=== PATIENT | male | born 1945 | race Native Hawaiian/Other Pacific Islander ===

== ENCOUNTER 2017-05-23 00:36 | Emergency (ER) | payer MEDICARE ==
[2017-05-23 00:43] VITALS: PULSE 60; RESP 20; TEMP 98.2
--- NOTE | 2017-05-23 01:22 | C.PDOC ---
History Of Present Illness Patient presents to the ED with complaints of nausea and vomiting since today after eating chicken. Patient denies any abdominal pain or other physical complaints at this time. Time Seen by Provider: 05/23/17 01:21 Chief Complaint (Nursing): Abdominal Pain History Per: Patient History/Exam Limitations: no limitations Onset/Duration Of Symptoms: Hrs Current Symptoms Are (Timing): Still Present Context: Food Severity: Mild Pain Scale Rating Of: 3 Radiation Of Pain To:: None Associated Symptoms: Nausea, Vomiting. denies: Fever, Chills Recent travel outside of the [place]: No Past Medical History Reviewed: Historical Data, Nursing Documentation, Vital Signs Vital Signs: Last Vital Signs Temp 98.2 F 05/23/17 00:37 Pulse 60 05/23/17 00:37 Resp 20 05/23/17 00:37 BP 190/79 H 05/23/17 00:37 Pulse Ox 100 05/23/17 01:57 - Medical History PMH: Cardia Arrhythmia, HTN, Hypercholesterolemia, Chronic Kidney Disease Surgical History: Coronary Stent (x7), Pacemaker (2001 at [facility] by Dr Lockhart.) Family History: States: Unknown Family Hx - Social History Hx Alcohol Use: No Hx Substance Use: No - Immunization History Hx Influenza Vaccination: Yes Hx Pneumococcal Vaccination: Yes Review Of Systems Constitutional: Negative for: Fever, Chills Cardiovascular: Negative for: Chest Pain, Palpitations Respiratory: Negative for: Cough, Shortness of Breath Gastrointestinal: Positive for: Nausea, Vomiting. Negative for: Abdominal Pain , Diarrhea Physical Exam - Physical Exam Appears: Non-toxic, No Acute Distress Skin: Warm, Dry Head: Normacephalic Eye(s): bilateral: Normal Inspection Oral Mucosa: Moist Neck: Supple Chest: Symmetrical, No Deformity, Other (Pacemaker to the left chest ) Cardiovascular: Rhythm Regular Respiratory: No Rales, No Rhonchi, No Wheezing Gastrointestinal/Abdominal: Soft, No Tenderness, Distention, No Guarding, No Rebound, Other (tympanic to percussion ) Back: No CVA Tenderness Extremity: No Tenderness, No Calf Tenderness, Capillary Refill (good capillary refill, less than two seconds ), No Deformity, No Swelling Extremity: Bilateral: Atraumatic, Normal Color And Temperature, Normal ROM Neurological/Psych: Oriented x3, Normal Speech, Normal Cognition, Other ( patient speaking in complete sentences ) Gait: Steady ED Course And Treatment - Laboratory Results Result Diagrams: 05/23/17 01:32 05/23/17 01:33 ECG: Interpreted By Me, Viewed By Me ECG Rhythm: Sinus Rhythm (60), Nonspecific Changes (av dualpaced rhytm) O2 Sat by Pulse Oximetry: 100 (room air ) Pulse Ox Interpretation: Normal Progress Note: blood work, zofran. pt feels bettrer. wants to go home Reevaluation Time: 02:49 Reassessment Condition: Improved Medical Decision Making Medical Decision Making: Upon provider reevaluation patient is feeling better, is medically stable, and requires no further treatment in the ED at this time. Patient will be discharged home with Rx for zofran . Counseling was provided and all questions were answered regarding diagnosis and need for follow up with dr judge. There is agreement to discharge plan. Return if symptoms persist or worsen. Disposition Counseled Patient/Family Regarding: Studies Performed, Diagnosis, Need For Followup, Rx Given - Disposition Referrals: Mode Judge MD [Staff Provider] - Disposition: HOME/ ROUTINE Disposition Time: 01:21 Condition: FAIR Prescriptions: Ondansetron ODT [Zofran ODT] 1 odt PO TID #15 odt Instructions: Abdominal Pain (ED), Gas and Bloating (ED), Heart Failure (DC) - Clinical Impression Clinical Impression: Abdominal pain, Nausea, CHF (congestive heart failure) - Scribe Statement The provider has reviewed the documentation as recorded by the Scribe Nurys Milligan All medical record entries made by the Scribe were at my direction and personally dictated by me. I have reviewed the chart and agree that the record accurately reflects my personal performance of the history, physical exam, medical decision making, and the department course for this patient. I have also personally directed, reviewed, and agree with the discharge instructions and disposition.
[2017-05-23 01:39] LABS: EOS # 0.3 K/uL (0.0-0.7); EOS % 6.7 % (0.0-4.0); HEMOGLOBIN 13.1 g/dL (12.0-18.0); LYMPH # 0.4 K/uL (1.0-4.3); LYMPH % 10.2 % (20.0-40.0); MEAN CELL VOLUME 93.8 fL (80.0-94.0); MEAN CORPUSCULAR HEMOGLOBIN 30.8 pg (27.0-31.0); MEAN CORPUSCULAR HGB CONC 32.8 g/dL (33.0-37.0); MEAN PLATELET VOLUME 8.3 fL (7.2-11.7); MONO # 0.3 K/uL (0.0-0.8); MONO % 7.7 % (0.0-10.0); NEUT # 3.1 K/uL (1.8-7.0); NEUT % 74.4 % (50.0-75.0); RBC 4.25 Mil/uL (4.40-5.90); RED CELL DISTRIBUTION WIDTH 15.1 % (11.5-14.5); WHITE BLOOD COUNT 4.1 K/uL (4.8-10.8)
[2017-05-23 01:45] LABS: INR 1.2; PROTHROMBIN TIME 13.9 SECONDS (9.7-12.2)
[2017-05-23 01:47] LABS: ALBUMIN 4.2 g/dL (3.5-5.0)
[2017-05-23 01:50] LABS: ALB/GLOB RATIO 1.1 (1.0-2.1)
[2017-05-23 01:51] LABS: CALCIUM 8.8 mg/dl (8.6-10.4)
[2017-05-23 02:55] VITALS: BP 154/65; O2SAT 98
--- NOTE | 2017-05-24 21:35 | CARD ---
APPROVED REPORT EKG Measurement Heart [id number] CT [id number] <Conclusion> AV dual-paced rhythm Abnormal ECG
== END 2017-05-23 03:12 | disposition home or self-care (01) ==
LOC: C.ER 00:36
DX: R11.0 Nausea (principal); R10.9 Unspecified abdominal pain; I50.9 Heart failure, unspecified
CPT/HCPCS: 80053; 83690; 83880; 85025; 85610; 85730; 93005; 96374; 96375; 99284; J1940; J2405

== ENCOUNTER 2018-10-14 15:18 | Inpatient (IN) | payer MEDICARE ==
--- NOTE | 2018-10-14 17:13 | C.PDOC ---
History Of Present Illness 73 y/o male, with history of diabetes, presents to ED complaining of abdominal pain since last night. Patient states he had normal bowel movement this morning and denies vomiting. States this is the first time having abdominal pain, but was here before for dizziness and vomiting. <Armida Buck - Last Filed: 10/14/18 18:59> History Per: Patient History/Exam Limitations: no limitations Onset/Duration Of Symptoms: Days Current Symptoms Are (Timing): Still Present <Armida Buck - Last Filed: 10/14/18 18:59> <Pooja Molina - Last Filed: 10/14/18 20:51> Time Seen by Provider: 10/14/18 16:46 Chief Complaint (Nursing): Abdominal Pain Past Medical History Reviewed: Historical Data, Nursing Documentation, Vital Signs Vital Signs: Last Vital Signs Temp 98.2 F 10/14/18 15:25 Pulse 65 10/14/18 15:25 Resp 18 10/14/18 15:25 BP 174/79 H 10/14/18 15:25 Pulse Ox 98 10/14/18 15:25 - Medical History PMH: Cardia Arrhythmia, HTN, Hypercholesterolemia, Chronic Kidney Disease Surgical History: Coronary Stent (x7), Pacemaker (2000 at [facility] by Dr Lockhart.) Family History: States: No Known Family Hx - Social History Hx Alcohol Use: No Hx Substance Use: No - Immunization History Hx Influenza Vaccination: Yes Hx Pneumococcal Vaccination: Yes <Armida Buck - Last Filed: 10/14/18 18:59> Vital Signs: Last Vital Signs Temp 98.2 F 10/14/18 15:25 Pulse 65 10/14/18 18:40 Resp 18 10/14/18 18:40 BP 187/78 H 10/14/18 18:40 Pulse Ox 98 10/14/18 18:59 <Tawanna Molinazackary - Last Filed: 10/14/18 20:51> Review Of Systems Except As Marked, All Systems Reviewed And Found Negative. Constitutional: Negative for: Fever, Chills Cardiovascular: Negative for: Chest Pain Respiratory: Negative for: Shortness of Breath Gastrointestinal: Positive for: Abdominal Pain. Negative for: Vomiting, Diarrhea <Armida Buck - Last Filed: 10/14/18 18:59> Physical Exam - Physical Exam Appears: Non-toxic, No Acute Distress Skin: Warm, Dry Head: Atraumatic, Normacephalic Eye(s): bilateral: Normal Inspection Oral Mucosa: Moist Neck: Supple Chest: Symmetrical Cardiovascular: Rhythm Regular, No Murmur Respiratory: Normal Breath Sounds, No Rales, No Rhonchi, No Wheezing Gastrointestinal/Abdominal: Soft, No Tenderness, No Distention, No Guarding, No Rebound Extremity: No Pedal Edema Extremity: Bilateral: Atraumatic Neurological/Psych: Oriented x3, Normal Speech <Armida Buck Filed: 10/14/18 18:59> ED Course And Treatment - Laboratory Results Result Diagrams: 10/14/18 17:33 10/14/18 17:33 O2 Sat by Pulse Oximetry: 98 (RA) Pulse Ox Interpretation: Normal <Armida Buck Filed: 10/14/18 18:59> - Laboratory Results Result Diagrams: 10/14/18 17:33 10/14/18 17:33 ECG: Interpreted By Me, Viewed By Me ECG Rhythm: Sinus Rhythm (65), Nonspecific Changes (av dual-paced) Pulse Ox Interpretation: Normal Progress Note: 8:[address] and us shows acute cholecystitis with stone in bladder neck. Spoke with dr ruiz who agrees with admission. Spoke with the pt and is aware of the diagnosis <Pooja Molina Filed: 10/14/18 20:51> Medical Decision Making Medical Decision Making: Plan: --CT Abd/Pel --EKG --Bloodwork --Morphine --US Abdomen --Urinalysis <Armida Buck Filed: 10/14/18 18:59> Disposition - Disposition Disposition Time: 19:00 <Armida Buck Filed: 10/14/18 18:59> Discussed With : Mode Ruiz Comment: accepted the pt on his service and took over the care at 8:49 PM Doctor Will See Patient In The: Hospital Counseled Patient/Family Regarding: Studies Performed, Diagnosis - POA Present On Arrival: Poor Glycemic Control <JesseTawannazackary Last Filed: 10/14/18 20:51> - Disposition Disposition: HOSPITALIZED Condition: FAIR Forms: [facility] (U[place]ayan) - Clinical Impression Clinical Impression: Abdominal pain, Acute cholecystitis - Scribe Statement The provider has reviewed the documentation as recorded by the Samuel Ward Provider Attestation: All medical record entries made by the Scribe were at my direction and personally dictated by me. I have reviewed the chart and agree that the record accurately reflects my personal performance of the history, physical exam, medical decision making, and the department course for this patient. I have also personally directed, reviewed, and agree with the discharge instructions and disposition. <Armida Buck - Last Filed: 10/14/18 18:59> Physician Patient Turnover Patient Signed Over To: Pooja Molina Handoff Comments: fu US, ct, dispo <Armida Buck - Last Filed: 10/14/18 18:59> Decision To Admit <HeberArmida - Last Filed: 10/14/18 18:59> - Pt Status Changed To: Hospital Disposition Of: Inpatient - Admit Certification Admit to Inpatient:: After my assessment, the patient will require hospitalization for at least two midnights. This is because of the severity of symptoms shown, intensity of services needed, and/or the medical risk in this patient being treated as an outpatient. - InPatient: Physician Admission Certification:: After my assessment, the patient will require hospitalization for at least two midnights. This is because of the severity of symptoms shown, intensity of services needed, and/or the medical risk in this patient being treated as an outpatient. - . Bed Request Type: Regular Admitting Physician: Mode Ruiz <Pooja Molina - Last Filed: 10/14/18 20:51> - . Patient Diagnosis: Abdominal pain, Acute cholecystitis
[2018-10-14 17:44] LABS: BASO % 0.7 % (0.0-2.0); EOS % 0.1 % (0.0-4.0); LYMPH # 0.8 K/uL (1.0-4.3); LYMPH % 11.9 % (20.0-40.0); MEAN CELL VOLUME 93.1 fL (80.0-94.0); MEAN CORPUSCULAR HGB CONC 33.3 g/dL (33.0-37.0); MEAN PLATELET VOLUME 8.1 fL (7.2-11.7); MONO # 0.5 K/uL (0.0-0.8); NEUT # 5.4 K/uL (1.8-7.0); NEUT % 79.3 % (50.0-75.0); RBC 4.5 Mil/uL (4.40-5.90); RED CELL DISTRIBUTION WIDTH 15.1 % (11.5-14.5); WHITE BLOOD COUNT 6.8 K/uL (4.8-10.8)
[2018-10-14 17:52] LABS: URINE BILIRUBIN NEGATIVE (NEGATIVE); URINE BLOOD 1+ (NEGATIVE); URINE CLARITY Clear (Clear); URINE COLOR Yellow (YELLOW); URINE GLUCOSE (UA) 1+ mg/dL (Normal); URINE LEUKOCYTE ESTERASE NEG Leu/uL (Negative); URINE PROTEIN NEGATIVE (NEGATIVE); URINE UROBILINOGEN NORMAL mg/dL (0.2-1.0)
[2018-10-14 17:53] LABS: ALB/GLOB RATIO 1.4 (1.0-2.1); ALBUMIN 4.9 g/dL (3.5-5.0); CALCIUM 9.8 mg/dl (8.6-10.4)
[2018-10-14] MEDS ORDERED: Iohexol 240 (50 ml) PO STA (18:03)
[2018-10-14] MEDS ORDERED: Iohexol 240 (50 ml) ONE (18:17)
[2018-10-14] MEDS ORDERED: Sodium Chloride 0.9% 500 ML IV ONE (20:24)
[2018-10-14] MEDS ORDERED: Piperacillin/Tazobact 3.375 gm 100 ML IVPB STA (20:34)
[2018-10-14] MEDS ORDERED: Piperacillin/Tazobact 3.375 gm 100 ML IVPB ONE (20:43)
[2018-10-14] MEDS ORDERED: HYDROmorphone 1 mg/ml ISec IVP PRN (22:18)
[2018-10-14] MEDS: Dextrose 5%/0.45% NS 1,000 ML IV SCH (23:00)
[2018-10-15] MEDS: Piperacill/Tazo 2.25gm in Dex 2.25 GM/50 ML BAG IVPB SCH ×4 (01:54→20:00)
[2018-10-15 06:07] LABS: BASO % 0.6 % (0.0-2.0); EOS % 0.5 % (0.0-4.0); HEMOGLOBIN 13.4 g/dL (12.0-18.0); LYMPH # 0.5 K/uL (1.0-4.3); LYMPH % 7.4 % (20.0-40.0); MEAN CELL VOLUME 91.9 fL (80.0-94.0); MEAN CORPUSCULAR HEMOGLOBIN 31.1 pg (27.0-31.0); MEAN CORPUSCULAR HGB CONC 33.9 g/dL (33.0-37.0); MEAN PLATELET VOLUME 7.9 fL (7.2-11.7); MONO # 0.9 K/uL (0.0-0.8); MONO % 12.2 % (0.0-10.0); NEUT # 5.6 K/uL (1.8-7.0); NEUT % 79.3 % (50.0-75.0); PLATELET COUNT 124 K/uL (130-400); RBC 4.31 Mil/uL (4.40-5.90); RED CELL DISTRIBUTION WIDTH 14.9 % (11.5-14.5)
[2018-10-15 06:17] LABS: INR 1.4; PROTHROMBIN TIME 15.5 SECONDS (9.7-12.2)
[2018-10-15 06:36] LABS: ALB/GLOB RATIO 1.3 (1.0-2.1); ALBUMIN 4.2 g/dL (3.5-5.0); CALCIUM 8.6 mg/dl (8.6-10.4)
--- NOTE | 2018-10-15 07:29 | CP.PCM.CON ---
History of Present Illness - History of Present Illness History of Present Illness: General surgery Consult for Dr. Laurent This is a 73M with a PMH of A flutter, AL, CAD s/p stenX7 defib placement and pacer, also with a PMH of gallstone pancreatitis. Presents due to 2 days of right upper quadrant pain. He reports nothing makes it better and nothing makes it worse. He reports nausea associated with the pain. He reports that he had a "gallstone by the pancrease" in the past and since it was by the pancreas they said he did not have to have his GB removed. He deneis any current chest pain fevers chills or SOB. US in the ed shows a gallstone stuck in the neck of the GB PMH: CAD s/p 7 stents, Aflutter PSH: Stents, Defib, Pacer All: NKDA Social: denies vices Review of Systems - Review of Systems Review of Systems: 12 point review of symptoms conducted and negative Past Patient History - Tetanus Immunizations Tetanus Immunization: Unknown - Past Medical History & Family History Past Medical History?: Yes - Past Social History Smoking Status: Former Smoker - CARDIAC Hx Cardia Arrhythmia: Yes Hx Hypercholesterolemia: Yes Hx Hypertension: Yes Hx Pacemaker: Yes (2000 at [facility] by Dr Lockhart.) - PULMONARY Hx Respiratory Disorders: No - NEUROLOGICAL Hx Neurological Disorder: No - HEENT Hx HEENT Problems: No - RENAL Hx Chronic Kidney Disease: Yes - ENDOCRINE/METABOLIC Hx Diabetes Mellitus Type 2: Yes - HEMATOLOGICAL/ONCOLOGICAL Hx Blood Disorders: No - INTEGUMENTARY Hx Dermatological Problems: No - MUSCULOSKELETAL/RHEUMATOLOGICAL Hx Musculoskeletal Disorders: No Hx Falls: No - GASTROINTESTINAL Hx Gastrointestinal Disorders: No - GENITOURINARY/GYNECOLOGICAL Hx Genitourinary Disorders: No - PSYCHIATRIC Hx Substance Use: No - SURGICAL HISTORY Hx Coronary Stent: Yes (x7) - ANESTHESIA Hx Anesthesia: Yes Hx Anesthesia Reactions: No Meds Allergies/Adverse Reactions: Allergies Allergy/AdvReac Type Severity Reaction Status Date / Time No Known Allergies Allergy Verified 10/14/18 15:28 - Medications Medications: Current Medications Allopurinol (Zyloprim) 100 mg PO DAILY [facility] Clonidine HCl (Catapres) 0.1 mg PO TID [facility] Hydromorphone HCl (Dilaudid) 1 mg IVP Q6H PRN PRN Reason: Pain, severe (8-10) Piperacillin Sod/Tazobactam Sod (Zosyn 2.25 Gm Iv Premix) 2.25 gm in 50 mls @ 100 mls/hr IVPB Q6H [facility]; Protocol Last Admin: 10/15/18 01:54 Dose: 100 mls/hr Dextrose/Sodium Chloride (Dextrose 5%/0.45% Ns 1000 Ml) 1,000 mls @ 40 mls/hr IV .Q24H [facility] Last Admin: 10/14/18 23:00 Dose: 40 mls/hr Insulin Aspart (Novolog) 0 unit SC ACHS [facility]; Protocol Isosorbide Mononitrate (Imdur) 60 mg PO DAILY [facility] Losartan Potassium (Cozaar) 100 mg PO DAILY [facility] Metoprolol Succinate (Toprol Xl) 25 mg PO DAILY [facility] Ondansetron HCl (Zofran Inj) 4 mg IVP Q6 PRN PRN Reason: Nausea/Vomiting Physical Exam - Constitutional Appears: Non-toxic, No Acute Distress - Head Exam Head Exam: ATRAUMATIC, NORMOCEPHALIC - Eye Exam Eye Exam: EOMI - ENT Exam ENT Exam: Mucous Membranes Moist - Respiratory Exam Respiratory Exam: NORMAL BREATHING PATTERN - Cardiovascular Exam Cardiovascular Exam: +S1, +S2 - GI/Abdominal Exam GI & Abdominal Exam: Soft, Tenderness. absent: Distended, Firm, Guarding, Rigid - Neurological Exam Neurological exam: Alert, Oriented x3 - Psychiatric Exam Psychiatric exam: Normal Affect, Normal Mood - Skin Skin Exam: Dry, Intact Results - Vital Signs Recent Vital Signs: Last Vital Signs Temp 99.6 F 10/15/18 06:31 Pulse 60 10/15/18 06:31 Resp 16 10/15/18 06:31 BP 178/80 H 10/15/18 06:31 Pulse Ox 96 10/15/18 06:31 - Labs Result Diagrams: 10/15/18 06:04 10/15/18 06:04 Labs: Laboratory Results - last 24 hr 10/14/18 10/14/18 10/14/18 17:33 17:33 17:33 WBC 6.8 D RBC 4.50 Hgb 14.0 Hct 41.9 MCV 93.1 MCH 31.0 MCHC 33.3 RDW 15.1 H Plt Count 139 MPV 8.1 Neut % (Auto) 79.3 H Lymph % (Auto) 11.9 L [place] % (Auto) 8.0 Eos % (Auto) 0.1 Baso % (Auto) 0.7 Neut # (Auto) 5.4 Lymph # (Auto) 0.8 L [place] # (Auto) 0.5 Eos # (Auto) 0.0 Baso # (Auto) 0.0 PT INR APTT Sodium 138 Potassium 3.9 Chloride 94 L Carbon Dioxide 28 Anion Gap 20 BUN 32 H Creatinine 1.7 H Est GFR ( Amer) 48 Est GFR (Non-Af Amer) 39 Random Glucose 191 H Calcium 9.8 Total Bilirubin 1.1 AST 41 ALT 82 H D Alkaline Phosphatase 93 Total Protein 8.4 H Albumin 4.9 Globulin 3.5 Albumin/Globulin Ratio 1.4 Lipase 149 Urine Color Yellow Urine Clarity Clear Urine pH 5.0 Ur Specific [place] 1.013 Urine Protein Negative Urine Glucose (UA) 1+ H Urine Ketones Negative Urine Blood 1+ H Urine Nitrate Negative Urine Bilirubin Negative Urine Urobilinogen Normal Ur Leukocyte Esterase Neg Urine WBC (Auto) < 1 Urine RBC (Auto) < 1 10/15/18 10/15/18 10/15/18 06:04 06:04 06:04 WBC 7.0 RBC 4.31 L Hgb 13.4 Hct 39.6 MCV 91.9 MCH 31.1 H MCHC 33.9 RDW 14.9 H Plt Count 124 L MPV 7.9 Neut % (Auto) 79.3 H Lymph % (Auto) 7.4 L [place] % (Auto) 12.2 H Eos % (Auto) 0.5 Baso % (Auto) 0.6 Neut # (Auto) 5.6 Lymph # (Auto) 0.5 L [place] # (Auto) 0.9 H Eos # (Auto) 0.0 Baso # (Auto) 0.0 PT 15.5 H INR 1.4 APTT 35 H Sodium 135 Potassium 4.0 Chloride 100 Carbon Dioxide 24 Anion Gap 15 BUN 25 H Creatinine 1.4 Est GFR ( Amer) 60 Est GFR (Non-Af Amer) 49 Random Glucose 188 H Calcium 8.6 Total Bilirubin 2.0 H AST 41 ALT 55 Alkaline Phosphatase 75 Total Protein 7.3 Albumin 4.2 Globulin 3.1 Albumin/Globulin Ratio 1.3 Lipase Urine Color Urine Clarity Urine pH Ur Specific [place] Urine Protein Urine Glucose (UA) Urine Ketones Urine Blood Urine Nitrate Urine Bilirubin Urine Urobilinogen Ur Leukocyte Esterase Urine WBC (Auto) Urine RBC (Auto) Assessment & Plan - Assessment and Plan (Free Text) Assessment: 73M with symptomatic cholelithiais NPO F/U GI recs F/U cardiac and medical clearance Possible lap omar once medically cleared D/W DR. Mehran Moody PGY3
[2018-10-15] MEDS ORDERED: (Novolog) Insulin Aspart, Recombinant 100 u/ml 10 ml vial ONE (08:31)
[2018-10-15 08:33] LABS: BASOPHIL 1 % (0-2); EOSINOPHIL 1 % (0-4); LYMPHOCYTE 8 % (20-40); MONOCYTE 13 % (0-10); NEUTROPHIL 77 % (50-75); TOTAL CELLS COUNTED 100
[2018-10-15 08:34] LABS: PLATELET ESTIMATE SLIGHTLY DECREASED (NORMAL)
[2018-10-15] MEDS: (Novolog) Insulin Aspart, Recombinant 100 u/ml 10 ml vial SC SCH ×4 (08:40→22:01)
[2018-10-15] MEDS: Metoprolol Succinate 25 mg XL Tab PO SCH (08:41)
--- NOTE | 2018-10-15 09:51 | CP.PCM.CON ---
History of Present Illness - History of Present Illness History of Present Illness: This is a 73 year old man with abdominal pain. Patient reports having an episode of abdominal pain six years ago which was accompanied by jaundice and pancreatitis. He was told at the time that the symptoms were caused by passage of a stone. Patient presented to the ER yesterday with a one-day history of RUQ pain accompanied by nausea. He did not note any provocative or palliative factors. At present, he states that the pain has resolved. On evaluation in the ER, he was afebrile, and the abdominal examination was benign, without tenderness, according to the ER physcician's note. WBC count was normal. LFTs were as follows: AST 41, ALT 82, ALKP 93, TBILI 1.1. Since admission, he has not experienced any further nausea. He denies having vomiting, loss of appetite, loss of weight, difficulty swallowing, heartburn, diarrhea, constipation, and rectal bleeding. Review of Systems - Review of Systems All systems: reviewed and no additional remarkable complaints except - Constitutional Constitutional: absent: Chills, Fever - Cardiovascular Cardiovascular: absent: Chest Pain, Dyspnea - Respiratory Respiratory: absent: Dyspnea - Gastrointestinal Gastrointestinal: Abdominal Pain, Nausea. absent: Constipation, Diarrhea, Dysphagia, Heartburn, Hematochezia, Vomiting Past Patient History - Tetanus Immunizations Tetanus Immunization: Unknown - Past Medical History & Family History Past Medical History?: Yes - Past Social History Smoking Status: Former Smoker - CARDIAC Hx Cardia Arrhythmia: Yes Hx Hypercholesterolemia: Yes Hx Hypertension: Yes Hx Pacemaker: Yes (2000 at [facility] by Dr Lockhart.) - PULMONARY Hx Respiratory Disorders: No - NEUROLOGICAL Hx Neurological Disorder: No - HEENT Hx HEENT Problems: No - RENAL Hx Chronic Kidney Disease: Yes - ENDOCRINE/METABOLIC Hx Diabetes Mellitus Type 2: Yes - HEMATOLOGICAL/ONCOLOGICAL Hx Blood Disorders: No - INTEGUMENTARY Hx Dermatological Problems: No - MUSCULOSKELETAL/RHEUMATOLOGICAL Hx Musculoskeletal Disorders: No Hx Falls: No - GASTROINTESTINAL Hx Gastrointestinal Disorders: No - GENITOURINARY/GYNECOLOGICAL Hx Genitourinary Disorders: No - PSYCHIATRIC Hx Substance Use: No - SURGICAL HISTORY Hx Coronary Stent: Yes (x7) - ANESTHESIA Hx Anesthesia: Yes Hx Anesthesia Reactions: No Meds Allergies/Adverse Reactions: Allergies Allergy/AdvReac Type Severity Reaction Status Date / Time No Known Allergies Allergy Verified 10/14/18 15:28 - Medications Medications: Current Medications Allopurinol (Zyloprim) 100 mg PO DAILY [facility] Last Admin: 10/15/18 08:41 Dose: 100 mg Clonidine HCl (Catapres) 0.1 mg PO TID [facility] Last Admin: 10/15/18 08:40 Dose: 0.1 mg Hydromorphone HCl (Dilaudid) 1 mg IVP Q6H PRN PRN Reason: Pain, severe (8-10) Piperacillin Sod/Tazobactam Sod (Zosyn 2.25 Gm Iv Premix) 2.25 gm in 50 mls @ 100 mls/hr IVPB Q6H [facility]; Protocol Last Admin: 10/15/18 09:05 Dose: 100 mls/hr Dextrose/Sodium Chloride (Dextrose 5%/0.45% Ns 1000 Ml) 1,000 mls @ 40 mls/hr IV .Q24H [facility] Last Admin: 10/14/18 23:00 Dose: 40 mls/hr Insulin Aspart (Novolog) 0 unit SC ACHS [facility]; Protocol Last Admin: 10/15/18 08:40 Dose: 1 unit Isosorbide Mononitrate (Imdur) 60 mg PO DAILY [facility] Last Admin: 10/15/18 08:40 Dose: 60 mg Losartan Potassium (Cozaar) 100 mg PO DAILY [facility] Last Admin: 10/15/18 08:40 Dose: 100 mg Metoprolol Succinate (Toprol Xl) 25 mg PO DAILY [facility] Last Admin: 10/15/18 08:41 Dose: 25 mg Ondansetron HCl (Zofran Inj) 4 mg IVP Q6 PRN PRN Reason: Nausea/Vomiting Physical Exam - Constitutional Appears: No Acute Distress - Head Exam Head Exam: ATRAUMATIC, NORMOCEPHALIC - Eye Exam Eye Exam: EOMI, PERRL - Neck Exam Neck exam: Negative for: Lymphadenopathy, Thyromegaly - Respiratory Exam Respiratory Exam: NORMAL BREATHING PATTERN. absent: Rales, Rhonchi, Wheezes - Cardiovascular Exam Cardiovascular Exam: REGULAR RHYTHM, +S1, +S2. absent: Gallop, Rubs, Systolic Murmur - GI/Abdominal Exam GI & Abdominal Exam: Normal Bowel Sounds, Soft. absent: Mass, Organomegaly, Tenderness - Rectal Exam Rectal Exam: Deferred - Extremities Exam Extremities exam: Negative for: calf tenderness, pedal edema Results - Vital Signs Recent Vital Signs: Last Vital Signs Temp 99.6 F 10/15/18 06:31 Pulse 60 10/15/18 06:31 Resp 16 10/15/18 06:31 BP 178/80 H 10/15/18 06:31 Pulse Ox 96 10/15/18 06:31 - Labs Result Diagrams: 10/15/18 06:04 10/15/18 06:04 Labs: Laboratory Results - last 24 hr 10/14/18 10/14/18 10/14/18 17:33 17:33 17:33 WBC 6.8 D RBC 4.50 Hgb 14.0 Hct 41.9 MCV 93.1 MCH 31.0 MCHC 33.3 RDW 15.1 H Plt Count 139 MPV 8.1 Neut % (Auto) 79.3 H Lymph % (Auto) 11.9 L [place] % (Auto) 8.0 Eos % (Auto) 0.1 Baso % (Auto) 0.7 Neut # (Auto) 5.4 Lymph # (Auto) 0.8 L [place] # (Auto) 0.5 Eos # (Auto) 0.0 Baso # (Auto) 0.0 Neutrophils % (Manual) Lymphocytes % (Manual) Monocytes % (Manual) Eosinophils % (Manual) Basophils % (Manual) Platelet Estimate PT INR APTT Sodium 138 Potassium 3.9 Chloride 94 L Carbon Dioxide 28 Anion Gap 20 BUN 32 H Creatinine 1.7 H Est GFR ( Amer) 48 Est GFR (Non-Af Amer) 39 POC Glucose (mg/dL) Random Glucose 191 H Calcium 9.8 Total Bilirubin 1.1 AST 41 ALT 82 H D Alkaline Phosphatase 93 Total Protein 8.4 H Albumin 4.9 Globulin 3.5 Albumin/Globulin Ratio 1.4 Lipase 149 Urine Color Yellow Urine Clarity Clear Urine pH 5.0 Ur Specific [place] 1.013 Urine Protein Negative Urine Glucose (UA) 1+ H Urine Ketones Negative Urine Blood 1+ H Urine Nitrate Negative Urine Bilirubin Negative Urine Urobilinogen Normal Ur Leukocyte Esterase Neg Urine WBC (Auto) < 1 Urine RBC (Auto) < 1 10/14/18 10/15/18 10/15/18 22:59 06:04 06:04 WBC 7.0 RBC 4.31 L Hgb 13.4 Hct 39.6 MCV 91.9 MCH 31.1 H MCHC 33.9 RDW 14.9 H Plt Count 124 L MPV 7.9 Neut % (Auto) 79.3 H Lymph % (Auto) 7.4 L [place] % (Auto) 12.2 H Eos % (Auto) 0.5 Baso % (Auto) 0.6 Neut # (Auto) 5.6 Lymph # (Auto) 0.5 L [place] # (Auto) 0.9 H Eos # (Auto) 0.0 Baso # (Auto) 0.0 Neutrophils % (Manual) 77 H Lymphocytes % (Manual) 8 L Monocytes % (Manual) 13 H Eosinophils % (Manual) 1 Basophils % (Manual) 1 Platelet Estimate Slightly decreased L PT 15.5 H INR 1.4 APTT 35 H Sodium Potassium Chloride Carbon Dioxide Anion Gap BUN Creatinine Est GFR ( Amer) Est GFR (Non-Af Amer) POC Glucose (mg/dL) 120 H Random Glucose Calcium Total Bilirubin AST ALT Alkaline Phosphatase Total Protein Albumin Globulin Albumin/Globulin Ratio Lipase Urine Color Urine Clarity Urine pH Ur Specific [place] Urine Protein Urine Glucose (UA) Urine Ketones Urine Blood Urine Nitrate Urine Bilirubin Urine Urobilinogen Ur Leukocyte Esterase Urine WBC (Auto) Urine RBC (Auto) 10/15/18 06:04 WBC RBC Hgb Hct MCV MCH MCHC RDW Plt Count MPV Neut % (Auto) Lymph % (Auto) [place] % (Auto) Eos % (Auto) Baso % (Auto) Neut # (Auto) Lymph # (Auto) [place] # (Auto) Eos # (Auto) Baso # (Auto) Neutrophils % (Manual) Lymphocytes % (Manual) Monocytes % (Manual) Eosinophils % (Manual) Basophils % (Manual) Platelet Estimate PT INR APTT Sodium 135 Potassium 4.0 Chloride 100 Carbon Dioxide 24 Anion Gap 15 BUN 25 H Creatinine 1.4 Est GFR ( Amer) 60 Est GFR (Non-Af Amer) 49 POC Glucose (mg/dL) Random Glucose 188 H Calcium 8.6 Total Bilirubin 2.0 H AST 41 ALT 55 Alkaline Phosphatase 75 Total Protein 7.3 Albumin 4.2 Globulin 3.1 Albumin/Globulin Ratio 1.3 Lipase Urine Color Urine Clarity Urine pH Ur Specific [place] Urine Protein Urine Glucose (UA) Urine Ketones Urine Blood Urine Nitrate Urine Bilirubin Urine Urobilinogen Ur Leukocyte Esterase Urine WBC (Auto) Urine RBC (Auto) Assessment & Plan (1) Acute cholecystitis Assessment and Plan: Patient had an episode of biliary colic, and imaging studies show a distended GB with a stone impacted in the neck. Hepatobiliary scan has been ordered for this morning. Patient will need cholecystectomy or cholecystostomy if he cannot be cleared for surgery. Status: Acute
--- NOTE | 2018-10-15 10:11 | US ---
Date of service: 10/14/2018 HISTORY: abd pain COMPARISON: None. TECHNIQUE: Sonographic evaluation of the right upper quadrant of the abdomen. FINDINGS: LIVER: Measures 13.9 cm in length. Normal echogenicity of the liver parenchyma. No mass. No intrahepatic bile duct dilatation. GALLBLADDER: Cholelithiasis. Calculus in the region of the gallbladder neck/cystic duct without definite evidence of obstruction. No mural thickening. No pericholecystic fluid. Negative sonographic Maurer sign. COMMON BILE DUCT: Measures 6 mm. No stones. No dilatation. PANCREAS: Unremarkable as visualized. No mass. No ductal dilatation. RIGHT KIDNEY: Measures 9.6 cm in length. Normal echogenicity. No calculus, mass, or hydronephrosis. AORTA: No aneurysmal dilatation. IVC: Unremarkable. OTHER FINDINGS: None . IMPRESSION: Cholelithiasis. No sonographic evidence of cholecystitis. No additional abnormality.
--- NOTE | 2018-10-15 10:35 | CT ---
Date of service: 10/14/2018 PROCEDURE: CT Abdomen and Pelvis. HISTORY: Abdominal pain COMPARISON: Correlation made with concurrent abdominal ultrasound 10/14/2013.. Comparison also made with prior CT scan abdomen pelvis 03/02/2012. TECHNIQUE: Contiguous axial images of the abdomen and pelvis. Oral contrast was administered. No IV contrast given. Coronal and Sagittal reformats generated. Radiation dose: Total exam DLP = 800.04 mGy-cm. This CT exam was performed using one or more of the following dose reduction techniques: Automated exposure control, adjustment of the mA and/or kV according to patient size, and/or use of iterative reconstruction technique. FINDINGS: LOWER THORAX: Mild passive/dependent type atelectasis both posterior lower lung escalante. Lung bases are otherwise clear. Heart size is enlarged. No significant pericardial effusion. New. There is a small hiatal hernia with wall thickening of the distal esophagus likely due to protrusion of gastric mucosa. Possibility of esophagitis or other intrinsic/invasive wall lesion not excluded. Clinical correlation recommended. LIVER: Liver exhibits normal size and attenuation pattern without masses collections or calcifications seen on this noncontrast exam. No gross ductal dilatation. GALLBLADDER AND BILE DUCTS: Gallbladder physiologically markedly distended with mild wall thickening and/or wall edema. There is an approximately 9.6 mm elliptical shaped calculus in the gallbladder neck region. Some mild pericholecystic infiltration changes. Rule out early acute cholecystitis. PANCREAS: Pancreas is atrophic and fatty replaced. No obvious pancreatic masses collections or calcifications. SPLEEN: Spleen exhibits normal size and attenuation pattern without masses collections or calcifications. . ADRENALS: No adrenal lesions. KIDNEYS AND URETERS: Kidneys demonstrate relatively symmetric size. No stone or hydronephrosis. BLADDER: Urinary bladder is incompletely distended which may in part account for slight thick-walled appearance. Muscular hypertrophy may contribute. REPRODUCTIVE: Prostate gland measures approximately 4.5 cm in transverse dimension. Prostatic calcifications present.. APPENDIX: Normal-appearing appendix. BOWEL: Evaluation of the bowel is slightly limited due to incomplete opacification. The stomach is distended with liquid contrast material admixed with food debris and air. Visualized loops of small bowel exhibit normal contour and caliber. No evidence of acute mechanical small bowel obstruction... Stool and air seen throughout the large bowel.. There is mild rectal wall thickening nonspecific. Consider followup colonoscopy to exclude the possibility of an intrinsic/invasive wall lesion.. There are a few right-sided colonic diverticula. No radiographic evidence of acute diverticulitis. PERITONEUM: Unremarkable. No fluid collection. No free air. Tiny fat containing umbilical hernia. LYMPH NODES: Unremarkable. No enlarged lymph nodes. VASCULATURE: Unremarkable. No aortic aneurysm. Minor aortic atherosclerotic calcification or mural plaque present. BONES: Multilevel degenerative spondylosis of the lower thoracic and lumbar spine. OTHER FINDINGS: None.. IMPRESSION: Gallbladder physiologically markedly distended with mild wall thickening and/or wall edema. There is an approximately 9.6 mm elliptical shaped calculus in the gallbladder neck region. Some mild pericholecystic infiltration changes. Rule out early acute cholecystitis. A small hiatal hernia with wall thickening of the distal esophagus likely due to protrusion of gastric mucosa however esophagitis or other intrinsic/invasive wall lesion not excluded. Suggest followup endoscopy if indicated. There is also mild wall thickening of the rectum that could be secondary to incomplete distention as well as adherent unopacified stool though intrinsic/invasive wall lesion also not excluded. Followup colonoscopy suggested as well. The few right-sided colonic diverticula
--- NOTE | 2018-10-15 11:35 | CP.PCM.CON ---
History of Present Illness - History of Present Illness History of Present Illness: 73M Presents due to 2 days of right upper quadrant pain. He reports nothing makes it better and nothing makes it worse. He reports nausea associated with the pain. He reports that he had a "gallstone by the pancreatitis" in the past started on IV antibiotics HIDA pending PMH: CAD s/p 7 stents, Aflutter PSH: Stents, Defib, Pacer All: NKDA Social: denies vices Review of Systems - Review of Systems All systems: reviewed and no additional remarkable complaints except - Constitutional Constitutional: absent: As Per HPI, Anorexia, Chills, Daytime Sleepiness, Excessive Sweating, Fatigue, Fever, Frequent Falls, Headache, Increased Appetite, Lethargy, Malaise, Night Sweats, Snoring, Sleep Apnea, Weight Gain, Weight Loss, Weakness, Other - EENT Eyes: absent: As Per HPI, Blind Spots, Blurred Vision, Change in Vision, Decreased Night Vision, Diplopia, Discharge, Dry Eye, Exophthalmos, Floaters, Irritation, Itchy Eyes, Loss of Peripheral Vision, Pain, Photophobia, Requires Corrective Lenses, Sees Flashes, Spots in Vision, Tunnel Vision, Other Visual Disturbances, Loss of Vision, Other Ears: absent: As Per HPI, Decreased Hearing, Ear Discharge, Ear Pain, Tinnitus, Abnormal Hearing, Disequilibrium, Dizziness, Other Nose/Mouth/Throat: absent: As Per HPI, Epistaxis, Nasal Congestion, Nasal Discharge, Nasal Obstruction, Nasal Trauma, Nose Pain, Post Nasal Drip, Sinus Pain, Sinus Pressure, Bleeding Gums, Change in Voice, Dental Pain, Dry Mouth, Dysphagia, Halitosis, Hoarsness, Lip Swelling, Mouth Lesions, Mouth Pain, Odynophagia, Sore Throat, Throat Swelling, Tongue Swelling, Facial Pain, Neck Pain, Neck Mass, Other - Cardiovascular Cardiovascular: As Per HPI - Respiratory Respiratory: absent: As Per HPI, Cough, Dyspnea, Hemoptysis, Dyspnea on Exe rtion, Wheezing, Snoring, Stridor, Pain on Inspiration, Chest Congestion, Excessive Mucous Production, Change in Mucous Color, Pain with Coughing, Other - Gastrointestinal Gastrointestinal: As Per HPI - Genitourinary Genitourinary: absent: As Per HPI, Change in Urinary Stream, Difficulty Urinating, Dysuria, Flank Pain, Hematuria, Pyuria, Nocturia, Urinary Incontinence, Urinary Frequency, Urinary Hesitance, Urinary Urgency, Voiding Freq/Small Amts, Freq UTI, Hx Renal/Bladder Calculi, Hx /Renal Surgery, Bladder Distension, Other - Musculoskeletal Musculoskeletal: absent: As Per HPI, Abnormal Gait, Arthralgias, Atrophy, Back Pain, Deformity, Joint Swelling, Limited Range of Motion, Loss of Height, Muscle Cramps, Muscle Weakness, Myalgias, Neck Pain, Numbness, Radiating Pain into Limb, Stiffness, Tingling, Other - Integumentary Integumentary: absent: As Per HPI, Acne, Alopecia, Bleeding Lesions, Change in Hair, Change in Nails, Change in Pigmentation, Changing Lesions, Dry Skin, Erythema, Furuncle, Hirsutism, Lesions, New Lesions, Non-Healing Lesions, Photosensitivity, Pruritus, Rash, Skin Pain, Skin Ulcer, Sores, Striae, Swelli ng, Unusual Bruising, Wounds, Jaundice, Other - Neurological Neurological: absent: As Per HPI, Abnormal Gait, Abnormal Hearing, Abnormal Movements, Abnormal Speech, Behavioral Changes, Burning Sensations, Confusion, Convulsions, Disequilibrium, Dizziness, Numbness, Focal Weakness, Frequent Falls, Headaches, Lack of Coordination, Loss of Vision, Memory Loss, P aresthesias, Radicular Pain, Restless Legs, Sensory Deficit, Syncope, Tingling, Tremor, Vertigo, Weakness, Other Visual Disturbances, Other - Psychiatric Psychiatric: absent: As Per HPI, Abnormal Sleep Pattern, Anhedonia, Anxiety, Auditory Hallucinations, Behavioral Changes, Change in Appetite, Change in Libido, Confusion, Depression, Difficulty Concentrating, Hallucinations, Homicidal Ideation, Hopelessness, Irritability, Memory Loss, Mood Swings, Panic Attacks, Paranoia, Suicidal Ideation, Visual Hallucinations, Tactile Hallucinations, Other Past Patient History - Tetanus Immunizations Tetanus Immunization: Unknown - Past Medical History & Family History Past Medical History?: Yes - Past Social History Smoking Status: Former Smoker - CARDIAC Hx Cardia Arrhythmia: Yes Hx Hypercholesterolemia: Yes Hx Hypertension: Yes Hx Pacemaker: Yes (2001 at [facility] by Dr Lockhart.) - PULMONARY Hx Respiratory Disorders: No - NEUROLOGICAL Hx Neurological Disorder: No - HEENT Hx HEENT Problems: No - RENAL Hx Chronic Kidney Disease: Yes - ENDOCRINE/METABOLIC Hx Diabetes Mellitus Type 2: Yes - HEMATOLOGICAL/ONCOLOGICAL Hx Blood Disorders: No - INTEGUMENTARY Hx Dermatological Problems: No - MUSCULOSKELETAL/RHEUMATOLOGICAL Hx Musculoskeletal Disorders: No Hx Falls: No - GASTROINTESTINAL Hx Gastrointestinal Disorders: No - GENITOURINARY/GYNECOLOGICAL Hx Genitourinary Disorders: No - PSYCHIATRIC Hx Substance Use: No - SURGICAL HISTORY Hx Coronary Stent: Yes (x7) - ANESTHESIA Hx Anesthesia: Yes Hx Anesthesia Reactions: No Meds Allergies/Adverse Reactions: Allergies Allergy/AdvReac Type Severity Reaction Status Date / Time No Known Allergies Allergy Verified 10/14/18 15:28 - Medications Medications: Current Medications Allopurinol (Zyloprim) 100 mg PO DAILY [facility] Last Admin: 10/15/18 08:41 Dose: 100 mg Clonidine HCl (Catapres) 0.1 mg PO TID [facility] Last Admin: 10/15/18 08:40 Dose: 0.1 mg Hydromorphone HCl (Dilaudid) 1 mg IVP Q6H PRN PRN Reason: Pain, severe (8-10) Piperacillin Sod/Tazobactam Sod (Zosyn 2.25 Gm Iv Premix) 2.25 gm in 50 mls @ 100 mls/hr IVPB Q6H [facility]; Protocol Last Admin: 10/15/18 09:05 Dose: 100 mls/hr Dextrose/Sodium Chloride (Dextrose 5%/0.45% Ns 1000 Ml) 1,000 mls @ 40 mls/hr IV .Q24H [facility] Last Admin: 10/14/18 23:00 Dose: 40 mls/hr Insulin Aspart (Novolog) 0 unit SC ACHS [facility]; Protocol Last Admin: 10/15/18 08:40 Dose: 1 unit Isosorbide Mononitrate (Imdur) 60 mg PO DAILY [facility] Last Admin: 10/15/18 08:40 Dose: 60 mg Losartan Potassium (Cozaar) 100 mg PO DAILY [facility] Last Admin: 10/15/18 08:40 Dose: 100 mg Metoprolol Succinate (Toprol Xl) 25 mg PO DAILY [facility] Last Admin: 10/15/18 08:41 Dose: 25 mg Ondansetron HCl (Zofran Inj) 4 mg IVP Q6 PRN PRN Reason: Nausea/Vomiting Physical Exam - Constitutional Appears: Non-toxic, Chronically Ill - Head Exam Head Exam: NORMOCEPHALIC - Eye Exam Eye Exam: absent: Scleral icterus - ENT Exam ENT Exam: Mucous Membranes Dry - Neck Exam Neck exam: Negative for: Lymphadenopathy - Respiratory Exam Respiratory Exam: Decreased Breath Sounds - Cardiovascular Exam Cardiovascular Exam: REGULAR RHYTHM - GI/Abdominal Exam GI & Abdominal Exam: Diminished Bowel Sounds, Distended, Guarding, Soft, Tenderness. absent: Rebound, Rigid - Rectal Exam Rectal Exam: Deferred - Exam Exam: NORMAL INSPECTION - Extremities Exam Extremities exam: Positive for: pedal pulses present. Negative for: calf tenderness, pedal edema, tenderness - Back Exam Back exam: absent: CVA tenderness (L), CVA tenderness (R) - Neurological Exam Neurological exam: Alert, CN II-XII Intact, Oriented x3, Reflexes Normal - Psychiatric Exam Psychiatric exam: Normal Mood - Skin Skin Exam: Dry Results - Vital Signs Recent Vital Signs: Last Vital Signs Temp 99.6 F 10/15/18 06:31 Pulse 60 10/15/18 06:31 Resp 16 10/15/18 06:31 BP 178/80 H 10/15/18 06:31 Pulse Ox 96 10/15/18 06:31 - Labs Result Diagrams: 10/15/18 06:04 10/15/18 06:04 Labs: Laboratory Results - last 24 hr 10/14/18 10/14/18 10/14/18 17:33 17:33 17:33 WBC 6.8 D RBC 4.50 Hgb 14.0 Hct 41.9 MCV 93.1 MCH 31.0 MCHC 33.3 RDW 15.1 H Plt Count 139 MPV 8.1 Neut % (Auto) 79.3 H Lymph % (Auto) 11.9 L Letcher % (Auto) 8.0 Eos % (Auto) 0.1 Baso % (Auto) 0.7 Neut # (Auto) 5.4 Lymph # (Auto) 0.8 L Letcher # (Auto) 0.5 Eos # (Auto) 0.0 Baso # (Auto) 0.0 Neutrophils % (Manual) Lymphocytes % (Manual) Monocytes % (Manual) Eosinophils % (Manual) Basophils % (Manual) Platelet Estimate PT INR APTT Sodium 138 Potassium 3.9 Chloride 94 L Carbon Dioxide 28 Anion Gap 20 BUN 32 H Creatinine 1.7 H Est GFR ( Amer) 48 Est GFR (Non-Af Amer) 39 POC Glucose (mg/dL) Random Glucose 191 H Calcium 9.8 Total Bilirubin 1.1 AST 41 ALT 82 H D Alkaline Phosphatase 93 Total Protein 8.4 H Albumin 4.9 Globulin 3.5 Albumin/Globulin Ratio 1.4 Lipase 149 Urine Color Yellow Urine Clarity Clear Urine pH 5.0 Ur Specific [place] 1.013 Urine Protein Negative Urine Glucose (UA) 1+ H Urine Ketones Negative Urine Blood 1+ H Urine Nitrate Negative Urine Bilirubin Negative Urine Urobilinogen Normal Ur Leukocyte Esterase Neg Urine WBC (Auto) < 1 Urine RBC (Auto) < 1 10/14/18 10/15/18 10/15/18 22:59 06:04 06:04 WBC 7.0 RBC 4.31 L Hgb 13.4 Hct 39.6 MCV 91.9 MCH 31.1 H MCHC 33.9 RDW 14.9 H Plt Count 124 L MPV 7.9 Neut % (Auto) 79.3 H Lymph % (Auto) 7.4 L Letcher % (Auto) 12.2 H Eos % (Auto) 0.5 Baso % (Auto) 0.6 Neut # (Auto) 5.6 Lymph # (Auto) 0.5 L Letcher # (Auto) 0.9 H Eos # (Auto) 0.0 Baso # (Auto) 0.0 Neutrophils % (Manual) 77 H Lymphocytes % (Manual) 8 L Monocytes % (Manual) 13 H Eosinophils % (Manual) 1 Basophils % (Manual) 1 Platelet Estimate Slightly decreased L PT 15.5 H INR 1.4 APTT 35 H Sodium Potassium Chloride Carbon Dioxide Anion Gap BUN Creatinine Est GFR ( Amer) Est GFR (Non-Af Amer) POC Glucose (mg/dL) 120 H Random Glucose Calcium Total Bilirubin AST ALT Alkaline Phosphatase Total Protein Albumin Globulin Albumin/Globulin Ratio Lipase Urine Color Urine Clarity Urine pH Ur Specific [place] Urine Protein Urine Glucose (UA) Urine Ketones Urine Blood Urine Nitrate Urine Bilirubin Urine Urobilinogen Ur Leukocyte Esterase Urine WBC (Auto) Urine RBC (Auto) 10/15/18 10/15/18 06:04 07:28 WBC RBC Hgb Hct MCV MCH MCHC RDW Plt Count MPV Neut % (Auto) Lymph % (Auto) Letcher % (Auto) Eos % (Auto) Baso % (Auto) Neut # (Auto) Lymph # (Auto) Letcher # (Auto) Eos # (Auto) Baso # (Auto) Neutrophils % (Manual) Lymphocytes % (Manual) Monocytes % (Manual) Eosinophils % (Manual) Basophils % (Manual) Platelet Estimate PT INR APTT Sodium 135 Potassium 4.0 Chloride 100 Carbon Dioxide 24 Anion Gap 15 BUN 25 H Creatinine 1.4 Est GFR ( Amer) 60 Est GFR (Non-Af Amer) 49 POC Glucose (mg/dL) 158 H Random Glucose 188 H Calcium 8.6 Total Bilirubin 2.0 H AST 41 ALT 55 Alkaline Phosphatase 75 Total Protein 7.3 Albumin 4.2 Globulin 3.1 Albumin/Globulin Ratio 1.3 Lipase Urine Color Urine Clarity Urine pH Ur Specific [place] Urine Protein Urine Glucose (UA) Urine Ketones Urine Blood Urine Nitrate Urine Bilirubin Urine Urobilinogen Ur Leukocyte Esterase Urine WBC (Auto) Urine RBC (Auto) Assessment & Plan (1) Abdominal pain Status: Acute (2) Acute cholecystitis Status: Acute - Assessment and Plan (Free Text) Assessment: surgical and GI eval in progress IV antibiotics started cultures pending await HIDA Plan: cardio eval for cholecystectomy vs cholecystotomy
[2018-10-15] MEDS: Dextrose 5%/0.45% NS 1,000 ML IV SCH (14:23)
[2018-10-15] MEDS ORDERED: Midazolam 2 MG/2 ML VIAL ONE (14:58)
[2018-10-15] MEDS ORDERED: Etomidate 20 mg/10ml Inj IV ONE (14:58)
--- NOTE | 2018-10-15 15:08 | PCM.SURG1 ---
Surgeon's Initial Post Op Note - Surgeon's Notes Surgeon: Benigno Mace MD Talent Management Manager: NONE Type of Anesthesia: IV Sedation Pre-Operative Diagnosis: Acute cholecystitis Operative Findings: Distended, thickwalled gallbladder, gallstones. Post-Operative Diagnosis: Acute cholecystitis Operation Performed: Placement of an 8.5 fr cholecystostomy tube. Specimen/Specimens Removed: 20 cc bile Estimated Blood Loss: EBL {In ML}: 2 Blood Products Given: N/A Drains Used: Toribio Victor Post-Op Condition: Fair Date of Surgery/Procedure: 10/15/18 Time of Surgery/Procedure: 15:05
--- NOTE | 2018-10-15 15:56 | NM ---
Date of service: 10/15/2018 PROCEDURE: Nuclear Medicine Hepatobiliary Scan HISTORY: cholecystitis COMPARISON: October 14, 2018. Abdominal ultrasound TECHNIQUE: 6.9 mCi of technetium 99m Mebrofenin was administered intravenously. Planar images of the abdomen were obtained at 5 min intervals to 60 mins. Delayed images were also obtained. FINDINGS: LIVER: Timely and homogenous uptake. COMMON BILE DUCT: identified at 15 mins. GALLBLADDER: Not identified at 03:00 hours. This follows percutaneous cholecystotomy.. SMALL BOWEL: Identified at 20 mins. IMPRESSION: Abnormal hepatobiliary Scan. The cystic duct is occluded, presumptive evidence for acute cholecystitis.
--- NOTE | 2018-10-15 20:22 | CP.PCM.HP ---
History of Present Illness - History of Present Illness History of Present Illness: 73 yo [place] male came to the ED at [facility] complaining of abdominal pain and nausea yesterday. He denies any fever. A Ct scan of the abdomen revealed a distended galbladder with a stone impacted at its neck. A HIDA scan was positive for a cholecystitis. He had an episode of pancreatitis few years ago related to gallstones. Known to have a dilated ischemic cardiomyopathy, with ICD insertion, an atrial fibrillation, he underwent a coronary angiogram 3 months ago at [facility], which demonstrated patent all stents, but a severe LV hypokinesia, and small coronary vessel disease. He is also known to have a Hypertension, a NIDDM, a hypercholesterolemia. Present on Admission - Present on Admission Any Indicators Present on Admission: No Review of Systems - Gastrointestinal Gastrointestinal: Abdominal Pain, Nausea Past Patient History - Tetanus Immunizations Tetanus Immunization: Unknown - Past Medical History & Family History Past Medical History?: Yes - Past Social History Smoking Status: Former Smoker Alcohol: None Drugs: Denies Home Situation {Lives}: With Family - CARDIAC Hx Atrial Fibrillation: Yes Hx Cardia Arrhythmia: Yes Hx Hypercholesterolemia: Yes Hx Hypertension: Yes Hx Pacemaker: Yes (2000 at [facility] by Dr Lockhart.) - PULMONARY Hx Respiratory Disorders: No - NEUROLOGICAL Hx Neurological Disorder: No - HEENT Hx HEENT Problems: No - RENAL Hx Chronic Kidney Disease: Yes - ENDOCRINE/METABOLIC Hx Diabetes Mellitus Type 2: Yes - HEMATOLOGICAL/ONCOLOGICAL Hx Blood Disorders: No - INTEGUMENTARY Hx Dermatological Problems: No - MUSCULOSKELETAL/RHEUMATOLOGICAL Hx Musculoskeletal Disorders: No Hx Falls: No - GASTROINTESTINAL Hx Gastrointestinal Disorders: No - GENITOURINARY/GYNECOLOGICAL Hx Genitourinary Disorders: No - PSYCHIATRIC Hx Substance Use: No - SURGICAL HISTORY Hx Coronary Stent: Yes (x7) - ANESTHESIA Hx Anesthesia: Yes Hx Anesthesia Reactions: No Meds Allergies/Adverse Reactions: Allergies Allergy/AdvReac Type Severity Reaction Status Date / Time No Known Allergies Allergy Verified 10/14/18 15:28 Physical Exam - Constitutional Appears: Well, No Acute Distress - Head Exam Head Exam: NORMAL INSPECTION - Eye Exam Eye Exam: Normal appearance Pupil Exam: NORMAL ACCOMODATION - ENT Exam ENT Exam: Normal Exam - Neck Exam Neck exam: Positive for: Normal Inspection - Respiratory Exam Respiratory Exam: Clear to Auscultation Bilateral, NORMAL BREATHING PATTERN - Cardiovascular Exam Cardiovascular Exam: Irregular Rhythm, Systolic Murmur - GI/Abdominal Exam GI & Abdominal Exam: Hypoactive Bowel Sounds, Tenderness - Rectal Exam Rectal Exam: Deferred - Exam Exam: NORMAL INSPECTION - Back Exam Back exam: NORMAL INSPECTION - Neurological Exam Neurological exam: Alert, Normal Gait, Oriented x3 - Psychiatric Exam Psychiatric exam: Anxious - Skin Skin Exam: Dry, Intact Results - Vital Signs Recent Vital Signs: Last Vital Signs Temp 98.5 F 10/15/18 15:19 Pulse 60 10/15/18 15:19 Resp 20 10/15/18 15:19 BP 166/77 H 10/15/18 15:19 Pulse Ox 94 L 10/15/18 15:19 - Labs Result Diagrams: 10/15/18 06:04 10/15/18 06:04 Labs: Laboratory Results - last 24 hr 10/14/18 10/15/18 10/15/18 22:59 06:04 06:04 WBC 7.0 RBC 4.31 L Hgb 13.4 Hct 39.6 MCV 91.9 MCH 31.1 H MCHC 33.9 RDW 14.9 H Plt Count 124 L MPV 7.9 Neut % (Auto) 79.3 H Lymph % (Auto) 7.4 L [place] % (Auto) 12.2 H Eos % (Auto) 0.5 Baso % (Auto) 0.6 Neut # (Auto) 5.6 Lymph # (Auto) 0.5 L [place] # (Auto) 0.9 H Eos # (Auto) 0.0 Baso # (Auto) 0.0 Neutrophils % (Manual) 77 H Lymphocytes % (Manual) 8 L Monocytes % (Manual) 13 H Eosinophils % (Manual) 1 Basophils % (Manual) 1 Platelet Estimate Slightly decreased L PT 15.5 H INR 1.4 APTT 35 H Sodium Potassium Chloride Carbon Dioxide Anion Gap BUN Creatinine Est GFR ( Amer) Est GFR (Non-Af Amer) POC Glucose (mg/dL) 120 H Random Glucose Calcium Total Bilirubin AST ALT Alkaline Phosphatase Total Protein Albumin Globulin Albumin/Globulin Ratio 10/15/18 10/15/18 06:04 07:28 WBC RBC Hgb Hct MCV MCH MCHC RDW Plt Count MPV Neut % (Auto) Lymph % (Auto) [place] % (Auto) Eos % (Auto) Baso % (Auto) Neut # (Auto) Lymph # (Auto) [place] # (Auto) Eos # (Auto) Baso # (Auto) Neutrophils % (Manual) Lymphocytes % (Manual) Monocytes % (Manual) Eosinophils % (Manual) Basophils % (Manual) Platelet Estimate PT INR APTT Sodium 135 Potassium 4.0 Chloride 100 Carbon Dioxide 24 Anion Gap 15 BUN 25 H Creatinine 1.4 Est GFR ( Amer) 60 Est GFR (Non-Af Amer) 49 POC Glucose (mg/dL) 158 H Random Glucose 188 H Calcium 8.6 Total Bilirubin 2.0 H AST 41 ALT 55 Alkaline Phosphatase 75 Total Protein 7.3 Albumin 4.2 Globulin 3.1 Albumin/Globulin Ratio 1.3 Assessment & Plan (1) Acute cholecystitis Assessment and Plan: For a cholecystostomy first while holding Eliquis. For a cholecystectomy in 2-3 days. Status: Acute (2) Ischemic dilated cardiomyopathy Assessment and Plan: To continue same home meds. Status: Chronic (3) Chronic atrial fibrillation Assessment and Plan: To hold Eliquis for future cholecystectomy. Status: Chronic (4) Cardiac defibrillator in situ Status: Acute Decision To Admit - Pt Status Changed To: Hospital Disposition Of: Inpatient - Admit Certification Admit to Inpatient:: After my assessment, the patient will require hospitalization for at least two midnights. This is because of the severity of symptoms shown, intensity of services needed, and/or the medical risk in this patient being treated as an outpatient. - InPatient: Physician Admission Certification:: After my assessments, the patient requires hospitalization for at least 2 midnights. - . Bed Request Type: Regular Admitting Physician: Mode Judge
[2018-10-16] MEDS: Piperacill/Tazo 2.25gm in Dex 2.25 GM/50 ML BAG IVPB SCH ×4 (01:50→20:04)
[2018-10-16] MEDS: (Novolog) Insulin Aspart, Recombinant 100 u/ml 10 ml vial SC SCH ×3 (07:30→21:27)
[2018-10-16] MEDS: Metoprolol Succinate 25 mg XL Tab PO SCH (10:11)
--- NOTE | 2018-10-16 10:43 | CP.PCM.PN ---
Subjective - Date & Time of Evaluation Date of Evaluation: 10/16/18 Time of Evaluation: 10:39 - Subjective Subjective: Patient had a fever to 101.4 last night. He complains of pain at the site of the percutaneous cholecystectomy. He denies having nausea, vomiting and diarrhea. Objective - Vital Signs/Intake and Output Vital Signs (last 24 hours): Temp Pulse Resp BP Pulse Ox 98.8 F 65 20 126/72 95 10/16/18 07:00 10/16/18 07:00 10/16/18 07:00 10/16/18 07:00 10/16/18 07:00 Intake and Output: 10/16/18 10/16/18 06:59 18:59 Intake Total 350 Output Total 450 Balance -100 - Medications Medications: Current Medications Acetaminophen (Tylenol 325mg Tab) 650 mg PO Q4 PRN PRN Reason: fever -101F Last Admin: 10/16/18 00:43 Dose: 650 mg Allopurinol (Zyloprim) 100 mg PO DAILY [facility] Last Admin: 10/16/18 10:11 Dose: 100 mg Clonidine HCl (Catapres) 0.1 mg PO TID [facility] Last Admin: 10/16/18 10:11 Dose: 0.1 mg Piperacillin Sod/Tazobactam Sod (Zosyn 2.25 Gm Iv Premix) 2.25 gm in 50 mls @ 100 mls/hr IVPB Q6H [facility]; Protocol Last Admin: 10/16/18 08:45 Dose: 100 mls/hr Dextrose/Sodium Chloride (Dextrose 5%/0.45% Ns 1000 Ml) 1,000 mls @ 40 mls/hr IV .Q24H [facility] Last Admin: 10/15/18 14:23 Dose: 40 mls/hr Insulin Aspart (Novolog) 0 unit SC ACHS [facility]; Protocol Last Admin: 10/16/18 07:30 Dose: Not Given Isosorbide Mononitrate (Imdur) 60 mg PO DAILY [facility] Last Admin: 10/16/18 10:09 Dose: 60 mg Losartan Potassium (Cozaar) 100 mg PO DAILY [facility] Last Admin: 10/16/18 10:11 Dose: Not Given Metoprolol Succinate (Toprol Xl) 25 mg PO DAILY [facility] Last Admin: 10/16/18 10:11 Dose: 25 mg Morphine Sulfate (Morphine) 2 mg IV Q4 PRN PRN Reason: pain Last Admin: 10/16/18 08:39 Dose: 2 mg Ondansetron HCl (Zofran Inj) 4 mg IVP Q6 PRN PRN Reason: Nausea/Vomiting - Labs Labs: 10/15/18 06:04 10/15/18 06:04 PT 15.5 SECONDS (9.7-12.2) H 10/15/18 06:04 INR 1.4 10/15/18 06:04 APTT 35 SECONDS (21-34) H 10/15/18 06:04 - Constitutional Appears: No Acute Distress - Head Exam Head Exam: ATRAUMATIC, NORMOCEPHALIC - Eye Exam Eye Exam: EOMI, PERRL - Neck Exam Neck Exam: absent: Lymphadenopathy, Thyromegaly - Respiratory Exam Respiratory Exam: NORMAL BREATHING PATTERN. absent: Rales, Rhonchi, Wheezes - Cardiovascular Exam Cardiovascular Exam: REGULAR RHYTHM, +S1, +S2. absent: Gallop, Rubs, Murmur - GI/Abdominal Exam GI & Abdominal Exam: Soft, Normal Bowel Sounds. absent: Organomegaly Additional comments: Cholecystostomy tube in place in RUQ - Rectal Exam Rectal Exam: Deferred - Extremities Exam Extremities Exam: absent: Calf Tenderness, Pedal Edema Assessment and Plan (1) Acute cholecystitis Assessment & Plan: Patient underwent percutaneous cholecystostomy yesterday. Plan is to continue antibiotics. If patient can be cleared for cholecystectomy, it can be scheduled for six weeks from now. Status: Acute
[2018-10-16 11:44] LABS: BASO % 0.2 % (0.0-2.0); HEMOGLOBIN 14.1 g/dL (12.0-18.0); LYMPH # 0.7 K/uL (1.0-4.3); LYMPH % 7.4 % (20.0-40.0); MEAN CELL VOLUME 92.9 fL (80.0-94.0); MEAN CORPUSCULAR HEMOGLOBIN 31.6 pg (27.0-31.0); MEAN PLATELET VOLUME 8.5 fL (7.2-11.7); MONO # 0.4 K/uL (0.0-0.8); MONO % 4.8 % (0.0-10.0); NEUT % 87.6 % (50.0-75.0); RBC 4.46 Mil/uL (4.40-5.90); WHITE BLOOD COUNT 9.1 K/uL (4.8-10.8)
[2018-10-16 11:45] LABS: PLATELET COUNT 116 K/uL (130-400)
[2018-10-16 11:59] LABS: ALB/GLOB RATIO 1.2 (1.0-2.1); ALBUMIN 3.7 g/dL (3.5-5.0)
[2018-10-16 12:12] LABS: BANDS 2 % (0-2); EOSINOPHIL 1 % (0-4); LYMPHOCYTE 9 % (20-40); MONOCYTE 4 % (0-10); NEUTROPHIL 84 % (50-75); PLATELET ESTIMATE SLIGHTLY DECREASED (NORMAL); TOTAL CELLS COUNTED 100
--- NOTE | 2018-10-16 14:47 | CP.PCM.PN ---
Subjective - Date & Time of Evaluation Date of Evaluation: 10/16/18 Time of Evaluation: 14:43 - Subjective Subjective: General Surgery Progress note for Dr. Laurent This 73M was seen and examined this MA at bedside. he continues to complain of RUQ pain. He had a fever overnight however denies any chest pain or SOB. He is tolerating CLD. Objective - Vital Signs/Intake and Output Vital Signs (last 24 hours): Temp Pulse Resp BP Pulse Ox 98.8 F 67 20 126/70 95 10/16/18 07:00 10/16/18 13:36 10/16/18 07:00 10/16/18 13:36 10/16/18 07:00 Intake and Output: 10/16/18 10/16/18 06:59 18:59 Intake Total 350 Output Total 450 Balance -100 - Medications Medications: Current Medications Acetaminophen (Tylenol 325mg Tab) 650 mg PO Q4 PRN PRN Reason: fever -101F Last Admin: 10/16/18 00:43 Dose: 650 mg Allopurinol (Zyloprim) 100 mg PO DAILY [facility] Last Admin: 10/16/18 10:11 Dose: 100 mg Clonidine HCl (Catapres) 0.1 mg PO TID [facility] Last Admin: 10/16/18 10:11 Dose: 0.1 mg Enoxaparin Sodium (Lovenox) 80 mg SC Q12 [facility] Piperacillin Sod/Tazobactam Sod (Zosyn 2.25 Gm Iv Premix) 2.25 gm in 50 mls @ 100 mls/hr IVPB Q6H [facility]; Protocol Last Admin: 10/16/18 13:55 Dose: 100 mls/hr Insulin Aspart (Novolog) 0 unit SC ACHS [facility]; Protocol Last Admin: 10/16/18 07:30 Dose: Not Given Isosorbide Mononitrate (Imdur) 60 mg PO DAILY [facility] Last Admin: 10/16/18 10:09 Dose: 60 mg Losartan Potassium (Cozaar) 100 mg PO DAILY [facility] Last Admin: 10/16/18 10:11 Dose: Not Given Metoprolol Succinate (Toprol Xl) 25 mg PO DAILY [facility] Last Admin: 10/16/18 10:11 Dose: 25 mg Morphine Sulfate (Morphine) 2 mg IV Q4 PRN PRN Reason: pain Last Admin: 10/16/18 13:54 Dose: 2 mg Ondansetron HCl (Zofran Inj) 4 mg IVP Q6 PRN PRN Reason: Nausea/Vomiting - Labs Labs: 10/16/18 11:36 10/16/18 11:36 PT 15.5 SECONDS (9.7-12.2) H 10/15/18 06:04 INR 1.4 10/15/18 06:04 APTT 35 SECONDS (21-34) H 10/15/18 06:04 - Constitutional Appears: Non-toxic, No Acute Distress - Head Exam Head Exam: ATRAUMATIC, NORMOCEPHALIC - Eye Exam Eye Exam: EOMI - ENT Exam ENT Exam: Mucous Membranes Moist - Respiratory Exam Respiratory Exam: NORMAL BREATHING PATTERN - Cardiovascular Exam Cardiovascular Exam: +S2 - GI/Abdominal Exam GI & Abdominal Exam: Tenderness (RUQ). absent: Firm, Guarding, Rigid, Soft Additional comments: Biliary drain with bilious fluid - Neurological Exam Neurological Exam: Alert, Awake - Psychiatric Exam Psychiatric exam: Normal Affect, Normal Mood - Skin Skin Exam: Dry, Intact Assessment and Plan - Assessment and Plan (Free Text) Assessment: This is a 73M with acute cholecystitis POD#1 s/p cholecystostomy tube Patient will likely need eventual cholecystectomy however at this time he is apprehensive Continue medical management and management per gastroenterology If you have any further concerns, please call the surgeon or the surgical elastic knitter hand frame Thank you for the consult D/W Dr. Mehran Modoy PGY3
--- NOTE | 2018-10-16 17:58 | CP.PCM.PN ---
Subjective - Date & Time of Evaluation Date of Evaluation: 10/16/18 Time of Evaluation: 17:56 - Subjective Subjective: Patient had percutaneous cholecystostomy yesterday and had fever last night. Tolerating clear liquid diet. No fever now, no abdominal pain. Objective - Vital Signs/Intake and Output Vital Signs (last 24 hours): Temp Pulse Resp BP Pulse Ox 99.1 F 65 20 122/70 96 10/16/18 15:22 10/16/18 15:22 10/16/18 15:22 10/16/18 15:22 10/16/18 15:22 Intake and Output: 10/16/18 10/16/18 06:59 18:59 Intake Total 350 610 Output Total 450 Balance -100 610 - Medications Medications: Current Medications Acetaminophen (Tylenol 325mg Tab) 650 mg PO Q4 PRN PRN Reason: fever -101F Last Admin: 10/16/18 00:43 Dose: 650 mg Allopurinol (Zyloprim) 100 mg PO DAILY [facility] Last Admin: 10/16/18 10:11 Dose: 100 mg Clonidine HCl (Catapres) 0.1 mg PO TID [facility] Last Admin: 10/16/18 10:11 Dose: 0.1 mg Enoxaparin Sodium (Lovenox) 80 mg SC Q12 [facility] Piperacillin Sod/Tazobactam Sod (Zosyn 2.25 Gm Iv Premix) 2.25 gm in 50 mls @ 100 mls/hr IVPB Q6H [facility]; Protocol Last Admin: 10/16/18 13:55 Dose: 100 mls/hr Insulin Aspart (Novolog) 0 unit SC ACHS [facility]; Protocol Last Admin: 10/16/18 17:17 Dose: Not Given Isosorbide Mononitrate (Imdur) 60 mg PO DAILY [facility] Last Admin: 10/16/18 10:09 Dose: 60 mg Losartan Potassium (Cozaar) 100 mg PO DAILY [facility] Last Admin: 10/16/18 10:11 Dose: Not Given Metoprolol Succinate (Toprol Xl) 25 mg PO DAILY [facility] Last Admin: 10/16/18 10:11 Dose: 25 mg Morphine Sulfate (Morphine) 2 mg IV Q4 PRN PRN Reason: pain Last Admin: 10/16/18 13:54 Dose: 2 mg Ondansetron HCl (Zofran Inj) 4 mg IVP Q6 PRN PRN Reason: Nausea/Vomiting - Labs Labs: 10/16/18 11:36 10/16/18 11:36 PT 15.5 SECONDS (9.7-12.2) H 10/15/18 06:04 INR 1.4 10/15/18 06:04 APTT 35 SECONDS (21-34) H 10/15/18 06:04 - Constitutional Appears: Well, No Acute Distress - Head Exam Head Exam: NORMAL INSPECTION - Eye Exam Eye Exam: Normal appearance Pupil Exam: NORMAL ACCOMODATION - ENT Exam ENT Exam: Normal Exam - Neck Exam Neck Exam: Normal Inspection - Respiratory Exam Respiratory Exam: Clear to Ausculation Bilateral, NORMAL BREATHING PATTERN - Cardiovascular Exam Cardiovascular Exam: Irregular Rhythm, Murmur - GI/Abdominal Exam GI & Abdominal Exam: Soft, Normal Bowel Sounds - Rectal Exam Rectal Exam: Deferred - Extremities Exam Extremities Exam: Normal Inspection - Back Exam Back Exam: NORMAL INSPECTION - Neurological Exam Neurological Exam: Alert, Awake, Normal Gait, Oriented x3 - Psychiatric Exam Psychiatric exam: Anxious - Skin Skin Exam: Dry, Intact, Normal Color, Warm Assessment and Plan (1) Acute cholecystitis Assessment & Plan: S/p percutaneous cholecystostomy. Status: Acute (2) Ischemic dilated cardiomyopathy Status: Chronic (3) Chronic atrial fibrillation Assessment & Plan: Will restart Eliquis 5 mg PO BID. Status: Chronic (4) Cardiac defibrillator in situ Status: Acute
[2018-10-16] MEDS ORDERED: Enoxaparin 80 mg Syringe SC SCH (22:00)
[2018-10-17] MEDS: Piperacill/Tazo 2.25gm in Dex 2.25 GM/50 ML BAG IVPB SCH ×4 (01:35→19:01)
[2018-10-17 07:01] LABS: HEMOGLOBIN 13.2 g/dL (12.0-18.0); MEAN CELL VOLUME 92.8 fL (80.0-94.0); MEAN CORPUSCULAR HGB CONC 34.5 g/dL (33.0-37.0); MEAN PLATELET VOLUME 8.3 fL (7.2-11.7); RBC 4.13 Mil/uL (4.40-5.90); RED CELL DISTRIBUTION WIDTH 14.7 % (11.5-14.5); WHITE BLOOD COUNT 8.7 K/uL (4.8-10.8)
[2018-10-17 08:07] LABS: ALB/GLOB RATIO 1.1 (1.0-2.1); ALBUMIN 3.6 g/dL (3.5-5.0); CALCIUM 8.9 mg/dl (8.6-10.4)
[2018-10-17] MEDS: (Novolog) Insulin Aspart, Recombinant 100 u/ml 10 ml vial SC SCH ×5 (08:13→21:24)
[2018-10-17] MEDS: Metoprolol Succinate 25 mg XL Tab PO SCH (09:19)
--- NOTE | 2018-10-17 14:51 | CP.PCM.PN ---
Subjective - Date & Time of Evaluation Date of Evaluation: 10/17/18 Time of Evaluation: 09:00 - Subjective Subjective: s/p cholecystostomy IV antibiotics renewed Objective - Vital Signs/Intake and Output Vital Signs (last 24 hours): Temp Pulse Resp BP Pulse Ox 98.9 F 65 18 126/71 96 10/17/18 07:03 10/17/18 13:09 10/17/18 07:03 10/17/18 13:09 10/17/18 07:03 Intake and Output: 10/17/18 10/17/18 06:59 18:59 Intake Total 100 Output Total 300 Balance -200 - Medications Medications: Current Medications Acetaminophen (Tylenol 325mg Tab) 650 mg PO Q4 PRN PRN Reason: fever -101F Last Admin: 10/16/18 00:43 Dose: 650 mg Allopurinol (Zyloprim) 100 mg PO DAILY [facility] Last Admin: 10/17/18 09:19 Dose: 100 mg Apixaban (Eliquis) 5 mg PO BID [facility] Last Admin: 10/17/18 09:19 Dose: 5 mg Clonidine HCl (Catapres) 0.1 mg PO TID [facility] Last Admin: 10/17/18 13:11 Dose: 0.1 mg Piperacillin Sod/Tazobactam Sod (Zosyn 2.25 Gm Iv Premix) 2.25 gm in 50 mls @ 100 mls/hr IVPB Q6H [facility]; Protocol Last Admin: 10/17/18 13:40 Dose: 100 mls/hr Insulin Aspart (Novolog) 0 unit SC ACHS [facility]; Protocol Last Admin: 10/17/18 12:00 Dose: 1 unit Isosorbide Mononitrate (Imdur) 60 mg PO DAILY [facility] Last Admin: 10/17/18 09:19 Dose: 60 mg Losartan Potassium (Cozaar) 100 mg PO DAILY [facility] Last Admin: 10/17/18 09:26 Dose: Not Given Metoprolol Succinate (Toprol Xl) 25 mg PO DAILY [facility] Last Admin: 10/17/18 09:19 Dose: 25 mg Morphine Sulfate (Morphine) 2 mg IV Q4 PRN PRN Reason: pain Last Admin: 10/17/18 12:01 Dose: 2 mg Ondansetron HCl (Zofran Inj) 4 mg IVP Q6 PRN PRN Reason: Nausea/Vomiting - Labs Labs: 11/28/18 06:51 10/17/18 06:51 PT 15.5 SECONDS (9.7-12.2) H 10/15/18 06:04 INR 1.4 10/15/18 06:04 APTT 35 SECONDS (21-34) H 10/15/18 06:04 - Constitutional Appears: Non-toxic, Chronically Ill - Head Exam Head Exam: NORMOCEPHALIC - Eye Exam Eye Exam: PERRL - ENT Exam ENT Exam: Mucous Membranes Dry - Respiratory Exam Respiratory Exam: Decreased Breath Sounds - Cardiovascular Exam Cardiovascular Exam: REGULAR RHYTHM. absent: Clicks - GI/Abdominal Exam GI & Abdominal Exam: Distended, Soft - Rectal Exam Rectal Exam: Deferred - Exam Exam: NORMAL INSPECTION Assessment and Plan (1) Abdominal pain Status: Acute (2) Acute cholecystitis Status: Acute - Assessment and Plan (Free Text) Assessment: cont IV then PO antibiotics
--- NOTE | 2018-10-17 17:52 | CARD ---
APPROVED REPORT Date of service: 10/14/2018 EKG Measurement Heart [id number] <Conclusion> AV dual-paced rhythm Abnormal ECG
--- NOTE | 2018-10-17 22:43 | CP.PCM.PN ---
Subjective - Date & Time of Evaluation Date of Evaluation: 10/17/18 Time of Evaluation: 20:00 - Subjective Subjective: Patient still has mild RUP pain, but afebrile and tolerating clear liquid diet. On IV Zosyn. Cholecystostomy tube still draining bile. Will advance diet in AM. Objective - Vital Signs/Intake and Output Vital Signs (last 24 hours): Temp Pulse Resp BP Pulse Ox 98.3 F 65 20 111/65 96 10/17/18 15:33 10/17/18 15:33 10/17/18 15:33 10/17/18 15:33 10/17/18 15:33 Intake and Output: 10/17/18 10/18/18 18:59 06:59 Intake Total 500 Output Total 75 Balance 425 - Medications Medications: Current Medications Acetaminophen (Tylenol 325mg Tab) 650 mg PO Q4 PRN PRN Reason: fever -101F Last Admin: 10/16/18 00:43 Dose: 650 mg Allopurinol (Zyloprim) [address] [facility] Last Admin: 10/17/18 09:19 Dose: 100 mg Apixaban (Eliquis) [address] [facility] Last Admin: 10/17/18 20:20 Dose: 5 mg Clonidine HCl (Catapres) 0.[address] [facility] Last Admin: 10/17/18 18:56 Dose: Not Given Piperacillin Sod/Tazobactam Sod (Zosyn 2.25 Gm Iv Premix) 2.25 gm in 50 mls @ 100 mls/hr IVPB Q6H [facility]; Protocol Last Admin: 10/17/18 19:01 Dose: 100 mls/hr Insulin Aspart (Novolog) [address] [facility]; Protocol Last Admin: 10/17/18 21:24 Dose: Not Given Isosorbide Mononitrate (Imdur) [address] [facility] Last Admin: 10/17/18 09:19 Dose: 60 mg Losartan Potassium (Cozaar) [address] [facility] Last Admin: 10/17/18 09:26 Dose: Not Given Metoprolol Succinate (Toprol Xl) [address] [facility] Last Admin: 10/17/18 09:19 Dose: 25 mg Morphine Sulfate (Morphine) 2 mg IV Q4 PRN PRN Reason: pain Last Admin: 10/17/18 16:04 Dose: 2 mg Ondansetron HCl (Zofran Inj) 4 mg IVP Q6 PRN PRN Reason: Nausea/Vomiting - Labs Labs: 10/17/18 06:51 10/17/18 06:51 PT 15.5 SECONDS (9.7-12.2) H 10/15/18 06:04 INR 1.4 10/15/18 06:04 APTT 35 SECONDS (21-34) H 10/15/18 06:04 - Constitutional Appears: No Acute Distress - Head Exam Head Exam: NORMAL INSPECTION - Eye Exam Eye Exam: Normal appearance - ENT Exam ENT Exam: Normal Exam - Neck Exam Neck Exam: Normal Inspection - Respiratory Exam Respiratory Exam: Clear to Ausculation Bilateral, NORMAL BREATHING PATTERN - Cardiovascular Exam Cardiovascular Exam: Irregular Rhythm, Murmur - GI/Abdominal Exam GI & Abdominal Exam: Soft, Normal Bowel Sounds Additional comments: Mild RUQ tanderness. - Rectal Exam Rectal Exam: Deferred - Exam Exam: NORMAL INSPECTION - Extremities Exam Extremities Exam: Normal Inspection - Back Exam Back Exam: NORMAL INSPECTION - Neurological Exam Neurological Exam: Alert, Awake, Oriented x3 - Psychiatric Exam Psychiatric exam: Anxious - Skin Skin Exam: Dry, Intact, Normal Color, Warm Assessment and Plan (1) Acute cholecystitis Assessment & Plan: S/p cholecystostomy POD # 2 Status: Acute (2) Ischemic dilated cardiomyopathy Status: Chronic (3) Chronic atrial fibrillation Status: Chronic (4) Cardiac defibrillator in situ Status: Chronic
[2018-10-18] MEDS: Piperacill/Tazo 2.25gm in Dex 2.25 GM/50 ML BAG IVPB SCH ×4 (02:13→20:08)
[2018-10-18] MEDS: (Novolog) Insulin Aspart, Recombinant 100 u/ml 10 ml vial SC SCH ×4 (07:30→21:52)
[2018-10-18] MEDS: Metoprolol Succinate 25 mg XL Tab PO SCH (10:03)
--- NOTE | 2018-10-18 22:01 | CP.PCM.PN ---
Subjective - Date & Time of Evaluation Date of Evaluation: 10/18/18 Time of Evaluation: 10:45 - Subjective Subjective: Patient still with a RUQ abdominal pain, but is afebrile and tolerating regular diet. Bile culture reveals E.Coli sensitive to Zosyn. Cholecystostomy tube still draining bile. Objective - Vital Signs/Intake and Output Vital Signs (last 24 hours): Temp Pulse Resp BP Pulse Ox 98 F 64 18 128/84 95 10/18/18 15:53 10/18/18 15:53 10/18/18 15:53 10/18/18 15:53 10/18/18 15:53 Intake and Output: 10/18/18 10/19/18 18:59 06:59 Intake Total 450 Output Total 80 Balance 370 - Medications Medications: Current Medications Acetaminophen (Tylenol 325mg Tab) 650 mg PO Q4 PRN PRN Reason: fever -101F Last Admin: 10/16/18 00:43 Dose: 650 mg Allopurinol (Zyloprim) 100 mg PO DAILY [facility] Last Admin: 10/18/18 10:03 Dose: 100 mg Apixaban (Eliquis) 5 mg PO BID [facility] Last Admin: 10/18/18 17:53 Dose: 5 mg Clonidine HCl (Catapres) 0.1 mg PO TID [facility] Last Admin: 10/18/18 17:53 Dose: 0.1 mg Piperacillin Sod/Tazobactam Sod (Zosyn 2.25 Gm Iv Premix) 2.25 gm in 50 mls @ 100 mls/hr IVPB Q6H [facility]; Protocol Last Admin: 10/18/18 20:08 Dose: 100 mls/hr Insulin Aspart (Novolog) 0 unit SC ACHS [facility]; Protocol Last Admin: 10/18/18 21:52 Dose: Not Given Isosorbide Mononitrate (Imdur) 60 mg PO DAILY [facility] Last Admin: 10/18/18 10:02 Dose: 60 mg Losartan Potassium (Cozaar) 100 mg PO DAILY [facility] Last Admin: 10/18/18 10:02 Dose: Not Given Metoprolol Succinate (Toprol Xl) 25 mg PO DAILY [facility] Last Admin: 10/18/18 10:03 Dose: 25 mg Morphine Sulfate (Morphine) 2 mg IV Q4 PRN PRN Reason: pain Last Admin: 11/29/18 04:21 Dose: 2 mg Ondansetron HCl (Zofran Inj) 4 mg IVP Q6 PRN PRN Reason: Nausea/Vomiting - Labs Labs: 10/17/18 06:51 10/17/18 06:51 PT 15.5 SECONDS (9.7-12.2) H 10/15/18 06:04 INR 1.4 10/15/18 06:04 APTT 35 SECONDS (21-34) H 10/15/18 06:04 - Constitutional Appears: Well, No Acute Distress - Head Exam Head Exam: NORMAL INSPECTION - Eye Exam Eye Exam: Normal appearance - ENT Exam ENT Exam: Normal Exam - Neck Exam Neck Exam: Normal Inspection - Respiratory Exam Respiratory Exam: Clear to Ausculation Bilateral, NORMAL BREATHING PATTERN - Cardiovascular Exam Cardiovascular Exam: Irregular Rhythm, Murmur - GI/Abdominal Exam GI & Abdominal Exam: Tenderness, Normal Bowel Sounds Additional comments: Mild tenderness of the RUQ. - Rectal Exam Rectal Exam: Deferred - Back Exam Back Exam: NORMAL INSPECTION - Neurological Exam Neurological Exam: Alert, Awake, Oriented x3 - Psychiatric Exam Psychiatric exam: Anxious - Skin Skin Exam: Dry, Intact, Normal Color Assessment and Plan (1) Acute cholecystitis Assessment & Plan: S/p percutaneous cholecystodtomy POD#3. Status: Acute (2) Ischemic dilated cardiomyopathy Status: Chronic (3) Chronic atrial fibrillation Status: Chronic (4) Cardiac defibrillator in situ Status: Chronic
[2018-10-19] MEDS: Piperacill/Tazo 2.25gm in Dex 2.25 GM/50 ML BAG IVPB SCH ×2 (01:46→07:57)
[2018-10-19] MEDS: (Novolog) Insulin Aspart, Recombinant 100 u/ml 10 ml vial SC SCH ×2 (07:42→12:06)
[2018-10-19 08:05] VITALS: PULSE 65; RESP 18; TEMP 98.1; O2SAT 100
[2018-10-19] MEDS: Metoprolol Succinate 25 mg XL Tab PO SCH (09:25)
[2018-10-19 09:27] VITALS: BP 175/85
--- NOTE | 2018-10-19 12:46 | US ---
PROCEDURE: Date of procedure: 10/15/2018 Procedure: 1. Percutaneous Cholecystostomy tube placement Medications: The patient was sedated by the anesthesiologist along with physiologic monitoring. 8 cubic centimeters lidocaine 2 percent HISTORY: Acute cholecystitis TECHNIQUE: Following informed consent the patient right abdomen was marked. The patient was placed supine on the interventional table and procedure time-out was called. Ultrasound showed distended gallbladder. At the patient sedated, the skin was anesthetized with 2 percent lidocaine. Under direct ultrasound guidance, a Connectbright catheter was advanced percutaneously into the gallbladder. Upon return of bile, an 035 wire was advanced into the gallbladder and was coiled within the gallbladder. The tract was dilated to accommodate 8.5 Prydeinig drainage catheter which was formed within the gallbladder. The tube was secured to patient and attached to a drainage bag. IMPRESSION: Percutaneous placement of a cholecystostomy tube.
--- NOTE | 2018-10-19 16:27 | PCM.HF ---
Heart Failure Core Measure - Heart Failure Ejection Fraction: 40 % or Greater (EF 40-45%) LANDON Inhibitor Prescribed: No Contraindication/Reason for not providing: RENAL INSUFFICIENCY Beta-Adria Prescribed: Metoprolol Succinate Angiotensin II Receptor Adria Prescribed: No Contraindication/Reason for not providing: renal insufficiency AnticoagulationTherapy for Atrial Fibrillation/Atrialflutter: Yes Aldosterone Antagonist Prescribed: No Contraindication/Reason for not providing: EF >40% Hydralazine Nitrate Prescribed: No Contraindication/Reason for not providing: ef >40% Implantable Cardioverter Defibrillator Therapy: No Contraindication/Reason for not providing: EF >40% Cardiac Resynchronization Therapy Prescribed: No Contraindication/Reason for not providing: not indicated - Follow up Will be discharged to: Home Follow Up Date (must be within 7 days from discharge): 10/22/18
--- NOTE | 2018-10-21 22:37 | CP.PCM.DIS ---
Provider - Provider Date of Admission: 10/14/18 20:43 Attending physician: Mode Judge MD Primary care physician: Mode Judge M.D. Consults: 10/14/18 21:21 Gastroenterology Consult Routine Comment: Consulting Provider: Guille Frazier Consulting Physician: Guille Frazier Reason for Consult: acute omar, stone in gallbladder neck 10/14/18 21:23 General Surgery Consult Routine Comment: Consulting Provider: Manny Laurent Jr. Consulting Physician: Manny Laurent Jr. Reason for Consult: acute omar 10/14/18 22:37 Physician Consult Routine Comment: Consulting Provider: Tremaine Hubbard Consulting Physician: Tremaine Hubbard Reason for Consult: Acute cholecystitis. 10/15/18 08:06 Physician Consult Routine Comment: Consulting Provider: Benigno Mace Consulting Physician: Benigno Mace Reason for Consult: acute cholecystitis, ?cholecystostomy tube Time Spent in preparation of Discharge (in minutes): 45 Diagnosis - Discharge Diagnosis (1) Acute cholecystitis Status: Acute (2) Ischemic dilated cardiomyopathy Status: Chronic (3) Chronic atrial fibrillation Status: Chronic (4) Cardiac defibrillator in situ Status: Chronic Hospital Course - Lab Results Lab Results: Micro Results 10/15/18 22:43 Blood-Venous Blood Culture - Final NO GROWTH AFTER 5 DAYS 10/15/18 22:43 Blood-Venous Gram Stain - Final TEST NOT PERFORMED 10/15/18 20:04 Blood-Venous Blood Culture - Final NO GROWTH AFTER 5 DAYS 10/15/18 Unknown Bile Gram Stain - Final 10/15/18 Unknown Bile Body Fluid Culture - Final Escherichia Coli Most Recent Lab Values WBC 8.7 K/uL (4.8-10.8) 10/17/18 06:51 RBC 4.13 Mil/uL (4.40-5.90) L 10/17/18 06:51 Hgb 13.2 g/dL (12.0-18.0) 10/17/18 06:51 Hct 38.3 % (35.0-51.0) 10/17/18 06:51 MCV 92.8 fL (80.0-94.0) 10/17/18 06:51 MCH 32.0 pg (27.0-31.0) H 10/17/18 06:51 MCHC 34.5 g/dL (33.0-37.0) 10/17/18 06:51 RDW 14.7 % (11.5-14.5) H 10/17/18 06:51 Plt Count 120 K/uL (130-400) L 10/17/18 06:51 MPV 8.3 fL (7.2-11.7) 10/17/18 06:51 Neut % (Auto) 87.6 % (50.0-75.0) H 10/16/18 11:36 Lymph % (Auto) 7.4 % (20.0-40.0) L 10/16/18 11:36 [place] % (Auto) 4.8 % (0.0-10.0) 10/16/18 11:36 Eos % (Auto) 0.0 % (0.0-4.0) 10/16/18 11:36 Baso % (Auto) 0.2 % (0.0-2.0) 10/16/18 11:36 Neut # (Auto) 8.0 K/uL (1.8-7.0) H 10/16/18 11:36 Lymph # (Auto) 0.7 K/uL (1.0-4.3) L 10/16/18 11:36 [place] # (Auto) 0.4 K/uL (0.0-0.8) 10/16/18 11:36 Eos # (Auto) 0.0 K/uL (0.0-0.7) 10/16/18 11:36 Baso # (Auto) 0.0 K/uL (0.0-0.2) 10/16/18 11:36 Neutrophils % (Manual) 84 % (50-75) H 10/16/18 11:36 Band Neutrophils % 2 % (0-2) 10/16/18 11:36 Lymphocytes % (Manual) 9 % (20-40) L 10/16/18 11:36 Monocytes % (Manual) 4 % (0-10) 10/16/18 11:36 Eosinophils % (Manual) 1 % (0-4) 10/16/18 11:36 Basophils % (Manual) 1 % (0-2) 10/15/18 06:04 Platelet Estimate Slightly decreased (NORMAL) L 10/16/18 11:36 PT 15.5 SECONDS (9.7-12.2) H 10/15/18 06:04 INR 1.4 10/15/18 06:04 APTT 35 SECONDS (21-34) H 10/15/18 06:04 Sodium 133 mmol/L (132-148) 10/17/18 06:51 Potassium 4.0 mmol/L (3.6-5.2) 10/17/18 06:51 Chloride 99 mmol/L (98-107) 10/17/18 06:51 Carbon Dioxide 24 mmol/L (22-30) 10/17/18 06:51 Anion Gap 14 (10-20) 10/17/18 06:51 BUN 26 mg/dL (9-20) H 10/17/18 06:51 Creatinine 2.0 mg/dL (0.8-1.5) H 10/17/18 06:51 Est GFR ( Amer) 40 10/17/18 06:51 Est GFR (Non-Af Amer) 33 10/17/18 06:51 POC Glucose (mg/dL) 158 mg/dL (65-110) H 10/19/18 11:36 Random Glucose 137 mg/dL (75-110) H 10/17/18 06:51 Calcium 8.9 mg/dl (8.6-10.4) 10/17/18 06:51 Phosphorus 2.7 mg/dL (2.5-4.5) 10/16/18 11:36 Magnesium 2.0 mg/dL (1.6-2.3) 10/16/18 11:36 Total Bilirubin 2.0 mg/dL (0.2-1.3) H 10/17/18 06:51 AST 23 U/L (17-59) 10/17/18 06:51 ALT 39 U/L (21-72) 10/17/18 06:51 Alkaline Phosphatase 75 U/L (38-126) 10/17/18 06:51 Total Protein 6.9 g/dL (6.3-8.3) 10/17/18 06:51 Albumin 3.6 g/dL (3.5-5.0) 10/17/18 06:51 Globulin 3.3 gm/dL (2.2-3.9) 10/17/18 06:51 Albumin/Globulin Ratio 1.1 (1.0-2.1) 10/17/18 06:51 Lipase 149 U/L (23-300) 10/14/18 17:33 Urine Color Yellow (YELLOW) 10/14/18 17:33 Urine Clarity Clear (Clear) 10/14/18 17:33 Urine pH 5.0 (5.0-8.0) 10/14/18 17:33 Ur Specific [place] 1.013 (1.003-1.030) 10/14/18 17:33 Urine Protein Negative mg/dL (NEGATIVE) 10/14/18 17:33 Urine Glucose (UA) 1+ mg/dL (Normal) H 10/14/18 17:33 Urine Ketones Negative mg/dL (NEGATIVE) 10/14/18: Urine Blood 1+ (NEGATIVE) H 10/14/18 17:33 Urine Nitrate Negative (NEGATIVE) 10/14/18 17: Urine Bilirubin Negative (NEGATIVE) 10/14/18 17: Urine Urobilinogen Normal mg/dL (0.2-1.0) 10/14/18 17:33 Ur Leukocyte Esterase Neg [place]/uL (Negative) 10/14/18 17:33 Urine WBC (Auto) < 1 /hpf (0-5) 10/14/18 17:33 Urine RBC (Auto) < 1 /hpf (0-3) 10/14/18 17:33 - Hospital Course Hospital Course: 73 years old male came to the hospital complaining of abdominal pain, nausea, vomiting for a few hours prior to coming to the ED at [facility]. He denies any fever, any previous similar episodes. A CT scan of the abdomen revealed a distended gallbladder with a 9.6 mm calculus at the neck of the gallbladder. The patient is known to have a dilated ischemic cardiomyopathy, an atrial fibrillation, a gout, a hypertension, a NIDDM. A HIDA scan was positive for an acute cholecystitis. The patient was evaluated by Dr Frazier(GI), Dr Laird ( Surgery ), but a cholecystectomy could not be performed, because the patient was on Eliquis for an atrial fibrillation. An ultrasound-guided cholecystostomy was performed by Dr Mace on 10/15/2018. Bile culture revealed E. Coli sensitive to Zosyn. Patient was put on Zosyn. The patient improved rapidly. He tolerated diet and was discharged home on 10/19/2018. He was to continue Cephalexin 500 mg PO TID for 4 weeks. He will have a follow up with Dr. Laird in a few weeks for an elective laparoscopic cholecystectomy. - Date & Time of H&P Date of H&P: 10/15/18 Discharge Exam - Head Exam Head Exam: NORMAL INSPECTION - Eye Exam Eye Exam: Normal appearance - ENT Exam ENT Exam: Normal Exam - Neck Exam Neck exam: Normal Inspection - Respiratory Exam Respiratory Exam: Clear to PA & Lateral, NORMAL BREATHING PATTERN - Cardiovascular Exam Cardiovascular Exam: Irregular Rhythm, Systolic Murmur - GI/Abdominal Exam GI & Abdominal Exam: Normal Bowel Sounds, Unremarkable - Rectal Exam Rectal Exam: Deferred - Exam Exam: NORMAL INSPECTION - Extremities Exam Extremities exam: normal inspection - Back Exam Back exam: NORMAL INSPECTION - Neurological Exam Neurological exam: Alert, Normal Gait, Oriented x3 - Psychiatric Exam Psychiatric exam: Anxious - Skin Skin Exam: Dry, Intact, Warm Discharge Plan - Discharge Medications Prescriptions: Cephalexin [cephalexin] 500 mg PO Q8H 14 Days cap - Follow Up Plan Condition: FAIR Disposition: HOME/ ROUTINE Instructions: Heart Healthy Diet, Heart Failure, Adult (DC), Acute Abdomen (Belly Pain), Adult (DC), Cholecystitis (DC) Additional Instructions: Discharge home today. VNS please referral for drain care and home care. To follow up with on ,at 0945 AM. Referrals: Manny Laurent Jr., MD [Staff Provider] - Mode Judge MD [Staff Provider] - Clinical Quality Measures - CQM - Heart Failure Left Ventricular Function to be assessed after discharge: No LANDON Inhibitor Prescribed: No Contraindication/Reason for not providing: Patient already on Losartan Beta-Adria Prescribed: Metoprolol Succinate Angiotensin II Receptor Adria Prescribed: Yes AnticoagulationTherapy for Atrial Fibrillation/Atrialflutter: Yes Aldosterone Antagonist Prescribed: No Contraindication/Reason for not providing: Hyperkalemia Hydralazine Nitrate Prescribed: No Contraindication/Reason for not providing: Low BP Implantable Cardioverter Defibrillator Therapy: No Contraindication/Reason for not providing: Not indicated. Cardiac Resynchronization Therapy Prescribed: No Contraindication/Reason for not providing: Not indicated. Will be discharged to: Home Follow Up Date (must be within 7 days from discharge): 10/26/18 Follow Up Time: 14:00 - Date & Time of Discharge Summary Date of Discharge Summary: 10/21/18 Time of Discharge Summary: 22:49
== END 2018-10-19 13:53 | disposition home health service (06) | DRG 445 ==
LOC: C.ER 15:18 → C.9E 20:43 → C.6T 10-15 14:11
PROVIDERS: ADMIT Internal Medicine Cardiovascular Disease; ATTEND Internal Medicine Cardiovascular Disease
PROC: 0F9430Z Drainage of Gallbladder with Drainage Device, Percutaneous Approach (ICD-10-PCS; principal; 2018-10-15)
DX: K81.0 Acute cholecystitis (principal); I42.0 Dilated cardiomyopathy; I12.9 Hypertensive chronic kidney disease with stage 1 through stage 4 chronic kidney disease, or unspecified chronic kidney disease; I25.5 Ischemic cardiomyopathy; I48.2 Chronic atrial fibrillation; N18.9 Chronic kidney disease, unspecified; Z79.84 Long term (current) use of oral hypoglycemic drugs; Z87.891 Personal history of nicotine dependence; Z95.0 Presence of cardiac pacemaker; Z95.5 Presence of coronary angioplasty implant and graft; M10.9 Gout, unspecified; I25.10 Atherosclerotic heart disease of native coronary artery without angina pectoris; E11.22 Type 2 diabetes mellitus with diabetic chronic kidney disease

== ENCOUNTER 2018-12-06 10:04 | Inpatient (IN) | payer MEDICARE ==
[2018-11-22 15:09] VITALS: BMI 28.4
[2018-12-06] MEDS ORDERED: Bupivacaine-Epi 0.5%-1:200,000 PF Inj ONE (11:32)
[2018-12-06] MEDS ORDERED: Etomidate 20 mg/10ml Inj IV ONE (11:42)
[2018-12-06] MEDS ORDERED: Midazolam 2 MG/2 ML VIAL ONE (11:42)
[2018-12-06] MEDS ORDERED: ceFAZolin 1 gm in NS 1 GM/100 ML BAG IVPB ONE (12:01)
[2018-12-06] MEDS ORDERED: Iohexol 240 (50 ml) ONE (12:07)
[2018-12-06] MEDS ORDERED: Glucagon Recombinant 1 mg Inj ONE (12:24)
[2018-12-06] MEDS ORDERED: Neostigmine 1:1000 (1 mg/ml) Inj ONE (13:14)
[2018-12-06] MEDS ORDERED: Morphine 4 MG/ML VIAL ONE (13:32)
[2018-12-06] MEDS ORDERED: HYDROmorphone 0.5 mg/0.5 ml ISec IVP PRN (13:35)
--- NOTE | 2018-12-06 13:53 | PCM.SURG1 ---
Surgeon's Initial Post Op Note - Surgeon's Notes Surgeon: Dr. Boyd Ship'S Pilot: Dr. Quesada Type of Anesthesia: General Endo Pre-Operative Diagnosis: Cholecystitis Operative Findings: see operative note Post-Operative Diagnosis: same Operation Performed: laparoscopic cholecystectomy with IOC Specimen/Specimens Removed: gallbladder Estimated Blood Loss: EBL {In ML}: 20 Blood Products Given: N/A Drains Used: No Drains Post-Op Condition: Good Date of Surgery/Procedure: 12/06/18 Time of Surgery/Procedure: 13:53
--- NOTE | 2018-12-06 14:16 | RAD ---
Date of service: 12/06/2018 PROCEDURE: Intraoperative fluoroscopy HISTORY: CHOLECYSTITIS COMPARISON: CT 11/06/2018 TECHNIQUE: Intraoperative fluoroscopy was performed for performance of an intraoperative cholangiogram. Total time of fluoroscopy was 8.0 sec. Cumulative dose was 1.63 mGy. FINDINGS: There is no drainage of contrast material from the common bile duct into the duodenum, implying on obstruction. No filling defect is identified within the common bile duct. There is sharp cut off of the distal CBD with some asymmetric pointing of the distal common duct on 1 image, of uncertain significance. There is no filling defect seen more proximally within the common bile duct. Contrast material injected through a percutaneous cholecystostomy catheter shows distention of the gallbladder with questionable gallstone identified on image 1. It is possible this gallstone is in the gallbladder neck on subsequent images. IMPRESSION: Intraoperative fluoroscopy demonstrates obstructed distal common bile duct of uncertain etiology. No filling defect identified within the common bile duct on this examination. Ampullary neoplasm, biliary stricture, choledocholithiasis or pancreatic neoplasm are suggested for differential diagnosis. Cholelithiasis is suspected from this examination.
[2018-12-06] MEDS ORDERED: Oxycodone/Acetaminophen 5/325 mg Tab PO PRN (14:30)
--- NOTE | 2018-12-06 17:25 | CP.PCM.PN ---
Subjective - Date & Time of Evaluation Date of Evaluation: 12/06/18 Time of Evaluation: 17:24 - Subjective Subjective: Patient seen and examined. Full consult note to follow. Plan for ERCP tomorrow pending labs, clinical status Objective - Vital Signs/Intake and Output Vital Signs (last 24 hours): Temp Pulse Resp BP Pulse Ox 99.2 F 70 12 154/78 H 100 12/06/18 15:45 12/06/18 15:45 12/06/18 15:45 12/06/18 15:45 12/06/18 15:45 Intake and Output: 12/06/18 12/06/18 06:59 18:59 Intake Total 1300 Output Total 500 Balance 800 - Medications Medications: Current Medications Allopurinol (Zyloprim) 100 mg PO DAILY TOBI Apixaban (Eliquis) 2.5 mg PO DAILY TOBI Aspirin (Ecotrin) 81 mg PO DAILY TOBI Clonidine HCl (Catapres) 0.1 mg PO TID TOBI Furosemide (Lasix) 40 mg PO DAILY TOBI Glipizide (Glucotrol Xl) 2.5 mg PO DAILY TOBI Isosorbide Mononitrate (Imdur) 60 mg PO DAILY TOBI Lorazepam (Ativan) 0.5 mg PO HS TOBI Losartan Potassium (Cozaar) 100 mg PO DAILY TOBI Metoprolol Succinate (Toprol Xl) 25 mg PO DAILY TOBI Oxycodone/Acetaminophen (Percocet 5/325 Mg Tab) 1 tab PO Q4H PRN PRN Reason: Pain, moderate (4-7) Stop: 12/09/18 14:31 Oxycodone/Acetaminophen (Percocet 5/325 Mg Tab) 2 tab PO Q4H PRN PRN Reason: Pain, severe (8-10) Stop: 12/09/18 14:31 Rosuvastatin Calcium (Crestor) 5 mg PO HS TOBI
[2018-12-06] MEDS: Oxycodone/Acetaminophen 5/325 mg Tab PO PRN (17:45)
--- NOTE | 2018-12-06 19:10 | CP.PCM.PN ---
Subjective - Date & Time of Evaluation Date of Evaluation: 12/06/18 Time of Evaluation: 19:07 - Subjective Subjective: Patient a laparoscopic cholecystectomy today. Will have ERCP for a CBD stone in AM. Objective - Vital Signs/Intake and Output Vital Signs (last 24 hours): Temp Pulse Resp BP Pulse Ox 99.2 F 70 12 154/78 H 100 12/06/18 15:45 12/06/18 15:45 12/06/18 15:45 12/06/18 15:45 12/06/18 15:45 Intake and Output: 12/06/18 12/07/18 18:59 06:59 Intake Total 1300 Output Total 500 Balance 800 - Medications Medications: Current Medications Allopurinol (Zyloprim) 100 mg PO DAILY TOBI Aspirin (Ecotrin) 81 mg PO DAILY TOBI Clonidine HCl (Catapres) 0.1 mg PO TID [facility] Last Admin: 12/06/18 17:45 Dose: 0.1 mg Furosemide (Lasix) 40 mg PO DAILY [facility] Glipizide (Glucotrol Xl) 2.5 mg PO DAILY [facility] Isosorbide Mononitrate (Imdur) 60 mg PO DAILY TOBI Lorazepam (Ativan) 0.5 mg PO HS [facility] Losartan Potassium (Cozaar) 100 mg PO DAILY [facility] Metoprolol Succinate (Toprol Xl) 25 mg PO DAILY [facility] Oxycodone/Acetaminophen (Percocet 5/325 Mg Tab) 1 tab PO Q4H PRN PRN Reason: Pain, moderate (4-7) Stop: 12/09/18 14:31 Last Admin: 12/06/18 17:45 Dose: 1 tab Oxycodone/Acetaminophen (Percocet 5/325 Mg Tab) 2 tab PO Q4H PRN PRN Reason: Pain, severe (8-10) Stop: 12/09/18 14:31 Rosuvastatin Calcium (Crestor) 5 mg PO HS [facility] - Constitutional Appears: Well, No Acute Distress - Head Exam Head Exam: NORMOCEPHALIC - Eye Exam Eye Exam: Normal appearance Pupil Exam: NORMAL ACCOMODATION - ENT Exam ENT Exam: Normal Exam - Neck Exam Neck Exam: Normal Inspection - Respiratory Exam Respiratory Exam: Clear to Ausculation Bilateral, NORMAL BREATHING PATTERN - Cardiovascular Exam Cardiovascular Exam: REGULAR RHYTHM - GI/Abdominal Exam GI & Abdominal Exam: Soft, Normal Bowel Sounds - Rectal Exam Rectal Exam: Deferred - Exam Exam: NORMAL INSPECTION - Extremities Exam Extremities Exam: Normal Inspection - Back Exam Back Exam: NORMAL INSPECTION - Neurological Exam Neurological Exam: Alert, Awake, Oriented x3 - Psychiatric Exam Psychiatric exam: Anxious - Skin Skin Exam: Dry, Normal Color, Warm Assessment and Plan (1) Cholelithiasis Assessment & Plan: For an ERCP in AM. Status: Acute (2) Ischemic dilated cardiomyopathy Assessment & Plan: To continue Lasix, Losartan, Metoprolol Status: Chronic (3) Chronic atrial fibrillation Assessment & Plan: Hold Eliquis for an ERCP. Status: Chronic (4) Hypertension Status: Acute
[2018-12-06 19:52] LABS: BASO % 0.5 % (0.0-2.0); EOS % 0.3 % (0.0-4.0); HEMOGLOBIN 14.3 g/dL (12.0-18.0); LYMPH # 0.6 K/uL (1.0-4.3); MEAN CELL VOLUME 94.1 fL (80.0-94.0); MEAN CORPUSCULAR HEMOGLOBIN 31.5 pg (27.0-31.0); MEAN CORPUSCULAR HGB CONC 33.5 g/dL (33.0-37.0); MEAN PLATELET VOLUME 8.3 fL (7.2-11.7); MONO # 0.6 K/uL (0.0-0.8); MONO % 7.6 % (0.0-10.0); NEUT % 84.6 % (50.0-75.0); PLATELET COUNT 126 K/uL (130-400); RBC 4.54 Mil/uL (4.40-5.90); RED CELL DISTRIBUTION WIDTH 15.8 % (11.5-14.5); WHITE BLOOD COUNT 8.3 K/uL (4.8-10.8)
--- NOTE | 2018-12-06 20:23 | CP.PCM.HP ---
History of Present Illness - History of Present Illness History of Present Illness: Surgery H&P for Dr. Boyd 73M with past medical history of HTN, DM, CAD s/p 7 coronary stents, AICD, and Pacemaker, presents s/p laparoscopic cholecystectomy with fluoroscopic and CT evidence of a common bile duct stone. Patient was seen in September with abdominal pain however due to severity of his disease and comorbidities, he was not a good surgical candidate. Interventional Radiology placed a cholecystostomy tube with drain at that time. During today's surgery, said drain was removed. Denies fever, chills, nausea, vomiting, diarrhea, SOB, chest pain, palpitations, or urinary symptoms. PMH: See above PSH: See above FH: 2 brothers from a heart attack in their 40s SH: Denies tobacco, alcohol, drugs ALL: NKDA Meds: See MAR Present on Admission - Present on Admission Any Indicators Present on Admission: No Review of Systems - Constitutional Constitutional: absent: Chills, Fever, Weakness - EENT Eyes: absent: Blurred Vision, Change in Vision Nose/Mouth/Throat: absent: Nasal Congestion, Nasal Discharge - Cardiovascular Cardiovascular: absent: Chest Pain, Dyspnea - Respiratory Respiratory: absent: Cough, Dyspnea - Gastrointestinal Gastrointestinal: absent: Abdominal Pain, Nausea, Vomiting - Genitourinary Genitourinary: absent: Difficulty Urinating, Dysuria - Musculoskeletal Musculoskeletal: absent: Back Pain, Neck Pain - Integumentary Integumentary: absent: Bleeding Lesions, Changing Lesions - Neurological Neurological: absent: Confusion, Numbness - Psychiatric Psychiatric: absent: Anxiety, Depression Past Patient History - Tetanus Immunizations Tetanus Immunization: Unknown - Past Medical History & Family History Past Medical History?: Yes - Past Social History Smoking Status: Former Smoker - CARDIAC Hx Cardiac Disorders: Yes Hx Angina: Yes (S/p PCI in 2001, 2008, and 2011.) Hx Cardia Arrhythmia: Yes Hx Circulatory Problems: (Chronic atrial flutter. Failed cardioversion in 2011 at [facility] [place] by Dr White.) Hx Heart Attack: Yes ("mild") Hx Hypercholesterolemia: Yes Hx Hypertension: Yes Hx Internal Defibrillator: Yes Hx Pacemaker: Yes - NEUROLOGICAL Hx Neurological Disorder: Yes Hx Dizziness: Yes - HEENT Hx HEENT Problems: Yes Hx Cataracts: Yes Other/Comment: wears glasses - ENDOCRINE/METABOLIC Hx Endocrine Disorders: Yes Hx Diabetes Mellitus Type 2: Yes - MUSCULOSKELETAL/RHEUMATOLOGICAL Hx Musculoskeletal Disorders: Yes Hx Arthritis: Yes Hx Back Pain: Yes Hx Gout: Yes - PSYCHIATRIC Hx Psychophysiologic Disorder: Yes Hx Anxiety: Yes Hx Depression: Yes - SURGICAL HISTORY Hx Surgeries: Yes Hx Cardiac Catheterization: Yes Hx Coronary Stent: Yes - ANESTHESIA Hx Anesthesia: Yes Hx Anesthesia Reactions: No Hx Malignant Hyperthermia: No Has any member of the family had a problem w/ anesthesia?: No Meds Allergies/Adverse Reactions: Allergies Allergy/AdvReac Type Severity Reaction Status Date / Time No Known Allergies Allergy Verified 10/14/18 15:28 Physical Exam - Constitutional Appears: Well, Non-toxic, No Acute Distress - Head Exam Head Exam: ATRAUMATIC, NORMAL INSPECTION, NORMOCEPHALIC - Eye Exam Eye Exam: EOMI - ENT Exam ENT Exam: Mucous Membranes Moist - Respiratory Exam Respiratory Exam: NORMAL BREATHING PATTERN. absent: Respiratory Distress - Cardiovascular Exam Cardiovascular Exam: REGULAR RHYTHM. absent: Tachycardia - GI/Abdominal Exam GI & Abdominal Exam: Normal Bowel Sounds, Soft, Tenderness. absent: Distended, Guarding, Rebound - Neurological Exam Neurological exam: Alert, Oriented x3 - Psychiatric Exam Psychiatric exam: Normal Affect, Normal Mood - Skin Skin Exam: Dry, Intact, Normal Color, Warm Additional comments: dressings c/d/i Results - Vital Signs Recent Vital Signs: Last Vital Signs Temp 98.3 F 12/06/18 16:00 Pulse 66 12/06/18 16:00 Resp 20 12/06/18 16:00 BP 165/80 H 12/06/18 16:00 Pulse Ox 100 12/06/18 16:00 - Labs Result Diagrams: 12/06/18 19:00 Labs: Laboratory Results - last 24 hr 12/06/18 12/06/18 12/06/18 10:49 14:50 16:40 WBC RBC Hgb Hct MCV MCH MCHC RDW Plt Count MPV Neut % (Auto) Lymph % (Auto) [place] % (Auto) Eos % (Auto) Baso % (Auto) Neut # (Auto) Lymph # (Auto) [place] # (Auto) Eos # (Auto) Baso # (Auto) POC Glucose (mg/dL) 140 H 156 H 137 H 12/06/18 19:00 WBC 8.3 RBC 4.54 Hgb 14.3 Hct 42.7 MCV 94.1 H MCH 31.5 H MCHC 33.5 RDW 15.8 H Plt Count 126 L MPV 8.3 Neut % (Auto) 84.6 H Lymph % (Auto) 7.0 L [place] % (Auto) 7.6 Eos % (Auto) 0.3 Baso % (Auto) 0.5 Neut # (Auto) 7.0 Lymph # (Auto) 0.6 L [place] # (Auto) 0.6 Eos # (Auto) 0.0 Baso # (Auto) 0.0 POC Glucose (mg/dL) Assessment & Plan - Assessment and Plan (Free Text) Assessment: 73M s/p laparoscopic cholecystectomy w/ IOC Fluoroscopy shows obstructed distal CBD of unknown etiology Plan: NPO past midnight per GI ERCP in AM per GI Monitor bowel function and diet tolerance Antiemetics and analgesics PRN F/u GI recommendations D/w Dr. Oliver Quesada PGY1
[2018-12-06 20:47] LABS: BANDS 8 % (0-2); LYMPHOCYTE 7 % (20-40); MONOCYTE 7 % (0-10); NEUTROPHIL 78 % (50-75); TOTAL CELLS COUNTED 100
[2018-12-06 20:48] LABS: ANISOCYTOSIS SLIGHT; PLATELET ESTIMATE SLIGHTLY DECREASED (NORMAL)
[2018-12-06] MEDS ORDERED: Metoprolol Succinate 25 mg XL Tab PO ONE (21:13)
[2018-12-07] MEDS: Oxycodone/Acetaminophen 5/325 mg Tab PO PRN ×2 (01:34→22:00)
--- NOTE | 2018-12-07 07:14 | CP.PCM.CON ---
History of Present Illness - History of Present Illness History of Present Illness: GI fellow PGY4, consult note. Ash Oliver is a pleasant 73M who presented for elective cholecystectomy. He was previously seen in this hospital 2 months ago for gallstone disease and a PTH drain was placed at that time. Patient has been doing well prior to surgery and surgery yesterday was successful. An IOC was performed which showed a possible stone in the CBD. Patient is afebrile and w/o obvious jaundice. Denies nausea, vomiting, worsening abdominal pain, passing flatus or BMs since surgery. 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 PMHx - CAD with stent and ICD, HTN, Afib on OAC PSHx - Cholecystectomy, ICD FMHx - No history of gallstones. No GI related cancers SocHx - Denies regular alcohol use or smoking. 12pt ROS completed and negative except for above. Past Patient History - Tetanus Immunizations Tetanus Immunization: Unknown - Past Medical History & Family History Past Medical History?: Yes - Past Social History Smoking Status: Former Smoker - CARDIAC Hx Cardiac Disorders: Yes Hx Angina: Yes (S/p PCI in 2001, 2008, and 2011.) Hx Cardia Arrhythmia: Yes Hx Circulatory Problems: (Chronic atrial flutter. [place] [facility] [place] Hx Heart Attack: Yes ("mild") Hx Hypercholesterolemia: Yes Hx Hypertension: Yes Hx Internal Defibrillator: Yes Hx Pacemaker: Yes - NEUROLOGICAL Hx Neurological Disorder: Yes Hx Dizziness: Yes - HEENT Hx HEENT Problems: Yes Hx Cataracts: Yes Other/Comment: wears glasses - ENDOCRINE/METABOLIC Hx Endocrine Disorders: Yes Hx Diabetes Mellitus Type 2: Yes - MUSCULOSKELETAL/RHEUMATOLOGICAL Hx Musculoskeletal Disorders: Yes Hx Arthritis: Yes Hx Back Pain: Yes Hx Gout: Yes - PSYCHIATRIC Hx Psychophysiologic Disorder: Yes Hx Anxiety: Yes Hx Depression: Yes - SURGICAL HISTORY Hx Surgeries: Yes Hx Cardiac Catheterization: Yes Hx Coronary Stent: Yes - ANESTHESIA Hx Anesthesia: Yes Hx Anesthesia Reactions: No Hx Malignant Hyperthermia: No Has any member of the family had a problem w/ anesthesia?: No Meds Allergies/Adverse Reactions: Allergies Allergy/AdvReac Type Severity Reaction Status Date / Time No Known Allergies Allergy Verified 10/14/18 15:28 - Medications Medications: Current Medications Allopurinol (Zyloprim) 100 mg PO DAILY [facility] Aspirin (Ecotrin) 81 mg PO DAILY [facility] Clonidine HCl (Catapres) 0.1 mg PO TID [facility] Last Admin: 12/06/18 17:45 Dose: 0.1 mg Furosemide (Lasix) 40 mg PO DAILY [facility] Glipizide (Glucotrol Xl) 2.5 mg PO DAILY [facility] Isosorbide Mononitrate (Imdur) 60 mg PO DAILY [facility] Lorazepam (Ativan) 0.5 mg PO HS [facility] Last Admin: 12/06/18 21:07 Dose: 0.5 mg Losartan Potassium (Cozaar) 100 mg PO DAILY [facility] Metoprolol Succinate (Toprol Xl) 25 mg PO DAILY [facility] Oxycodone/Acetaminophen (Percocet 5/325 Mg Tab) 1 tab PO Q4H PRN PRN Reason: Pain, moderate (4-7) Stop: 12/09/18 14:31 Last Admin: 12/07/18 01:34 Dose: 1 tab Oxycodone/Acetaminophen (Percocet 5/325 Mg Tab) 2 tab PO Q4H PRN PRN Reason: Pain, severe (8-10) Stop: 12/09/18 14:31 Rosuvastatin Calcium (Crestor) 5 mg PO [facility] Last Admin: 12/06/18 21:07 Dose: 5 mg Physical Exam - Constitutional Appears: Non-toxic, No Acute Distress - Head Exam Head Exam: ATRAUMATIC, NORMAL INSPECTION - Eye Exam Eye Exam: EOMI, Normal appearance - ENT Exam ENT Exam: Mucous Membranes Moist, Normal Exam - Respiratory Exam Respiratory Exam: Clear to Auscultation Bilateral, NORMAL BREATHING PATTERN - Cardiovascular Exam Cardiovascular Exam: REGULAR RHYTHM, +S1, +S2 - GI/Abdominal Exam GI & Abdominal Exam: Normal Bowel Sounds, Soft, Tenderness. absent: Distended, Guarding, Rigid - Extremities Exam Extremities exam: Positive for: normal inspection. Negative for: pedal edema - Neurological Exam Neurological exam: Alert, CN II-XII Intact, Oriented x3 - Psychiatric Exam Psychiatric exam: Normal Affect, Normal Mood - Skin Skin Exam: Normal Color, Warm Results - Vital Signs Recent Vital Signs: Last Vital Signs Temp 99.2 F 12/06/18 23:45 Pulse 65 12/07/18 03:50 Resp 20 12/06/18 23:45 BP 151/73 H 12/06/18 23:45 Pulse Ox 95 12/06/18 23:45 - Labs Result Diagrams: 12/07/18 07:01 12/07/18 07:01 Labs: Laboratory Results - last 24 hr 12/06/18 12/06/18 12/06/18 10:49 14:50 16:40 WBC RBC Hgb Hct MCV MCH MCHC RDW Plt Count MPV Neut % (Auto) Lymph % (Auto) [place] % (Auto) Eos % (Auto) Baso % (Auto) Neut # (Auto) Lymph # (Auto) [place] # (Auto) Eos # (Auto) Baso # (Auto) Neutrophils % (Manual) Band Neutrophils % Lymphocytes % (Manual) Monocytes % (Manual) Platelet Estimate Anisocytosis (manual) POC Glucose (mg/dL) 140 H 156 H 137 H Alpha Fetoprotein Carcinoembryonic Ag CA 19-9 Antigen 12/06/18 12/06/18 12/06/18 19:00 19:00 19:10 WBC 8.3 RBC 4.54 Hgb 14.3 Hct 42.7 MCV 94.1 H MCH 31.5 H MCHC 33.5 RDW 15.8 H Plt Count 126 L MPV 8.3 Neut % (Auto) 84.6 H Lymph % (Auto) 7.0 L [place] % (Auto) 7.6 Eos % (Auto) 0.3 Baso % (Auto) 0.5 Neut # (Auto) 7.0 Lymph # (Auto) 0.6 L [place] # (Auto) 0.6 Eos # (Auto) 0.0 Baso # (Auto) 0.0 Neutrophils % (Manual) 78 H Band Neutrophils % 8 H Lymphocytes % (Manual) 7 L Monocytes % (Manual) 7 Platelet Estimate Slightly decreased L Anisocytosis (manual) Slight POC Glucose (mg/dL) Alpha Fetoprotein 2.4 Carcinoembryonic Ag 3.1 H CA 19-9 Antigen 11.5 12/06/18 12/07/18 21:43 06:37 WBC RBC Hgb Hct MCV MCH MCHC RDW Plt Count MPV Neut % (Auto) Lymph % (Auto) [place] % (Auto) Eos % (Auto) Baso % (Auto) Neut # (Auto) Lymph # (Auto) [place] # (Auto) Eos # (Auto) Baso # (Auto) Neutrophils % (Manual) Band Neutrophils % Lymphocytes % (Manual) Monocytes % (Manual) Platelet Estimate Anisocytosis (manual) POC Glucose (mg/dL) 133 H 166 H Alpha Fetoprotein Carcinoembryonic Ag CA 19-9 Antigen Assessment & Plan - Assessment and Plan (Free Text) Assessment: #Symptomatic gallstones #?Choledocolithiasis #Afib on OAC #s/p ICD PLAN: -s/p cholecystectomy 12/06/18 -Imaging reviewed, possible retained stone on IOC. -Plan for ERCP -continue to hold Eliquis. - Date & Time Date: 12/07/18 Time: 08:00
[2018-12-07 07:21] LABS: HEMOGLOBIN 13.2 g/dL (12.0-18.0); MEAN CELL VOLUME 94.5 fL (80.0-94.0); MEAN CORPUSCULAR HEMOGLOBIN 31.8 pg (27.0-31.0); MEAN CORPUSCULAR HGB CONC 33.6 g/dL (33.0-37.0); MEAN PLATELET VOLUME 8.4 fL (7.2-11.7); RBC 4.15 Mil/uL (4.40-5.90); RED CELL DISTRIBUTION WIDTH 15.6 % (11.5-14.5)
[2018-12-07 07:30] LABS: INR 1.3; PROTHROMBIN TIME 13.7 SECONDS (9.7-12.2)
--- NOTE | 2018-12-07 07:40 | CP.PCM.PN ---
Subjective - Date & Time of Evaluation Date of Evaluation: 12/07/18 Time of Evaluation: 06:30 - Subjective Subjective: Surgery Progress Note for Dr. Boyd. Patient seen and examined at bedside. Patient is s/p laparoscopic cholecystectomy, POD #1. No acute events overnight reported. Patient reports some minor abdominal pain around incision sites, but offers no other complaints. Patient denies chest pain, SOB, nausea, vomiting, dysuria, hematuria. Objective - Vital Signs/Intake and Output Vital Signs (last 24 hours): Temp Pulse Resp BP Pulse Ox 99.2 F 65 20 151/73 H 95 12/06/18 23:45 12/07/18 03:50 12/06/18 23:45 12/06/18 23:45 12/06/18 23:45 Intake and Output: 12/07/18 12/07/18 06:59 18:59 Intake Total 500 Output Total 200 Balance 300 - Medications Medications: Current Medications Allopurinol (Zyloprim) 100 mg PO DAILY [facility] Aspirin (Ecotrin) 81 mg PO DAILY [facility] Clonidine HCl (Catapres) 0.1 mg PO TID [facility] Last Admin: 12/06/18 17:45 Dose: 0.1 mg Furosemide (Lasix) 40 mg PO DAILY [facility] Glipizide (Glucotrol Xl) 2.5 mg PO DAILY [facility] Isosorbide Mononitrate (Imdur) 60 mg PO DAILY [facility] Lorazepam (Ativan) 0.5 mg PO HS [facility] Last Admin: 12/06/18 21:07 Dose: 0.5 mg Losartan Potassium (Cozaar) 100 mg PO DAILY [facility] Metoprolol Succinate (Toprol Xl) 25 mg PO DAILY [facility] Oxycodone/Acetaminophen (Percocet 5/325 Mg Tab) 1 tab PO Q4H PRN PRN Reason: Pain, moderate (4-7) Stop: 12/09/18 14:31 Last Admin: 12/07/18 01:34 Dose: 1 tab Oxycodone/Acetaminophen (Percocet 5/325 Mg Tab) 2 tab PO Q4H PRN PRN Reason: Pain, severe (8-10) Stop: 12/09/18 14:31 Rosuvastatin Calcium (Crestor) 5 mg PO HS [facility] Last Admin: 12/06/18 21:07 Dose: 5 mg - Labs Labs: 01/18/19 07:01 PT 13.7 SECONDS (9.7-12.2) H 12/07/18 07:01 INR 1.3 12/07/18 07:01 APTT 32 SECONDS (21-34) 12/07/18 07:01 - Constitutional Appears: Non-toxic, No Acute Distress - Eye Exam Eye Exam: Normal appearance - ENT Exam ENT Exam: Mucous Membranes Moist - Respiratory Exam Respiratory Exam: NORMAL BREATHING PATTERN. absent: Chest Wall Tenderness - Cardiovascular Exam Cardiovascular Exam: absent: Bradycardia, Tachycardia - GI/Abdominal Exam GI & Abdominal Exam: Soft. absent: Guarding, Rigid, Tenderness Additional comments: incision sites dressing, clean, dry, intact - Extremities Exam Extremities Exam: Full ROM, Normal Inspection. absent: Calf Tenderness, Pedal Edema - Back Exam Back Exam: absent: CVA tenderness (L), CVA tenderness (R) - Neurological Exam Neurological Exam: Alert, Awake, Oriented x3 - Psychiatric Exam Psychiatric exam: Normal Affect, Normal Mood - Skin Skin Exam: Dry, Intact, Normal Color, Warm Assessment and Plan - Assessment and Plan (Free Text) Assessment: 73 male s/p laparoscopic cholecystectomy with fluoroscopic and CT evidence of a common bile duct stone: Plan: - NPO - ERCP w/ GI today - pain management - f/u GI recs Further recs per Dr. Oliver Burnett, PGY 1 Surgery
[2018-12-07 07:41] LABS: ALB/GLOB RATIO 1.6 (1.0-2.1); ALBUMIN 4.3 g/dL (3.5-5.0); CALCIUM 9.2 mg/dl (8.6-10.4)
[2018-12-07] MEDS ORDERED: Succinylcholine Chloride 20 mg/ml Syr (5 ml) IV ONE (09:01)
[2018-12-07] MEDS ORDERED: Midazolam 2 MG/2 ML VIAL ONE (09:01)
[2018-12-07] MEDS ORDERED: Propofol 10 mg/ml Inj (20 ML) ONE ×2 (09:01→10:29)
[2018-12-07] MEDS ORDERED: Lidocaine Hydrochloride 5 ML INJ ONE (09:02)
[2018-12-07] MEDS ORDERED: Lactated Ringer's 1,000 ML IV ONE (09:46)
[2018-12-07] MEDS ORDERED: ePHEDrine 50 mg/ml Inj ONE (10:23)
[2018-12-07] MEDS: Sodium Chloride 0.9% 1,000 ML IV SCH ×2 (13:00→18:18)
[2018-12-07] MEDS: metroNIDAZOLE IV 500 mg/100 ml 500 MG/100 ML BAG IVPB SCH ×2 (13:03→19:11)
[2018-12-07] MEDS: Metoprolol Succinate 25 mg XL Tab PO SCH (13:03)
[2018-12-07] MEDS: GlipiZIDE 2.5 mg SR Tab PO SCH (13:08)
--- NOTE | 2018-12-07 22:06 | CP.PCM.PN ---
Subjective - Date & Time of Evaluation Date of Evaluation: 12/07/18 Time of Evaluation: 13:15 - Subjective Subjective: Cholangiogram today showed sphinter stenosis but no CBD stone. Stent was inserted. Objective - Vital Signs/Intake and Output Vital Signs (last 24 hours): Temp Pulse Resp BP Pulse Ox 100.5 F H 75 16 143/82 96 12/07/18 19:57 12/07/18 19:57 12/07/18 19:57 12/07/18 19:57 12/07/18 19:57 Intake and Output: 12/07/18 12/08/18 18:59 06:59 Intake Total 820 Balance 820 - Medications Medications: Current Medications Acetaminophen (Tylenol 325mg Tab) 650 mg PO Q6 PRN PRN Reason: fever>100.4+pain Allopurinol (Zyloprim) 100 mg PO DAILY [facility] Last Admin: 12/07/18 13:01 Dose: 100 mg Apixaban (Eliquis) 2.5 mg PO BID [facility] Aspirin (Ecotrin) 81 mg PO DAILY [facility] Last Admin: 12/07/18 13:03 Dose: 81 mg Clonidine HCl (Catapres) 0.1 mg PO TID [facility] Last Admin: 12/07/18 18:17 Dose: 0.1 mg Furosemide (Lasix) 40 mg PO DAILY [facility] Last Admin: 12/07/18 13:02 Dose: 40 mg Glipizide (Glucotrol Xl) 2.5 mg PO DAILY [facility] Last Admin: 12/07/18 13:08 Dose: Not Given Sodium Chloride (Sodium Chloride 0.9%) 1,000 mls @ 100 mls/hr IV .Q10H [facility] Last Admin: 12/07/18 18:18 Dose: 100 mls/hr Metronidazole (Flagyl) 500 mg in 100 mls @ 100 mls/hr IVPB Q8H [facility]; Protocol Last Admin: 12/07/18 19:11 Dose: 100 mls/hr Isosorbide Mononitrate (Imdur) 60 mg PO DAILY [facility] Last Admin: 12/07/18 13:03 Dose: 60 mg Lorazepam (Ativan) 0.5 mg PO HS [facility] Last Admin: 12/07/18 22:00 Dose: 0.5 mg Losartan Potassium (Cozaar) 100 mg PO DAILY [facility] Last Admin: 12/07/18 13:02 Dose: 100 mg Metoprolol Succinate (Toprol Xl) 25 mg PO DAILY [facility] Last Admin: 12/07/18 13:03 Dose: 25 mg Oxycodone/Acetaminophen (Percocet 5/325 Mg Tab) 1 tab PO Q4H PRN PRN Reason: Pain, moderate (4-7) Stop: 12/09/18 14:31 Last Admin: 12/07/18 22:00 Dose: 1 tab Oxycodone/Acetaminophen (Percocet 5/325 Mg Tab) 2 tab PO Q4H PRN PRN Reason: Pain, severe (8-10) Stop: 12/09/18 14:31 Last Admin: 12/07/18 14:09 Dose: 2 tab Pantoprazole Sodium (Protonix Inj) 40 mg IVP Q12H [facility] Last Admin: 12/07/18 22:00 Dose: 40 mg Rosuvastatin Calcium (Crestor) 5 mg PO HS [facility] Last Admin: 12/07/18 22:00 Dose: 5 mg - Labs Labs: 12/07/18 07:01 12/07/18 07:01 PT 13.7 SECONDS (9.7-12.2) H 12/07/18 07:01 INR 1.3 12/07/18 07:01 APTT 32 SECONDS (21-34) 12/07/18 07:01 - Constitutional Appears: No Acute Distress, Chronically Ill - Head Exam Head Exam: NORMOCEPHALIC - Eye Exam Eye Exam: Normal appearance Pupil Exam: NORMAL ACCOMODATION - ENT Exam ENT Exam: Normal Exam - Neck Exam Neck Exam: Normal Inspection - Respiratory Exam Respiratory Exam: Clear to Ausculation Bilateral, NORMAL BREATHING PATTERN - Cardiovascular Exam Cardiovascular Exam: Irregular Rhythm, Murmur - GI/Abdominal Exam GI & Abdominal Exam: Soft, Normal Bowel Sounds - Rectal Exam Rectal Exam: Deferred - Exam Exam: NORMAL INSPECTION - Extremities Exam Extremities Exam: Normal Inspection - Back Exam Back Exam: NORMAL INSPECTION - Neurological Exam Neurological Exam: Alert, Awake, Oriented x3 - Psychiatric Exam Psychiatric exam: Anxious - Skin Skin Exam: Dry, Intact, Warm Assessment and Plan (1) Cholelithiasis Status: Acute (2) Ischemic dilated cardiomyopathy Status: Chronic (3) Chronic atrial fibrillation Status: Chronic (4) Hypertension Status: Acute
[2018-12-08 00:44] VITALS: RESP 20
[2018-12-08] MEDS: metroNIDAZOLE IV 500 mg/100 ml 500 MG/100 ML BAG IVPB SCH ×2 (03:00→12:26)
[2018-12-08 07:10] LABS: INR 1.4; PROTHROMBIN TIME 15.1 SECONDS (9.7-12.2)
[2018-12-08 07:30] VITALS: PULSE 80
[2018-12-08 07:47] VITALS: TEMP 99.1; O2SAT 95
[2018-12-08] MEDS: Metoprolol Succinate 25 mg XL Tab PO SCH (09:46)
[2018-12-08 09:49] VITALS: BP 142/76
[2018-12-08] MEDS: GlipiZIDE 2.5 mg SR Tab PO SCH (10:50)
--- NOTE | 2018-12-08 13:47 | CP.PCM.DIS ---
Provider - Provider Date of Admission: 12/06/18 13:54 Attending physician: Dewayne Boyd MD Consults: 12/06/18 14:00 Gastroenterology Consult Routine Comment: Consulting Provider: Emily Moses Consulting Physician: Emily Moses Reason for Consult: CBD Stone 12/08/18 12:30 Physician Consult Routine Comment: Consulting Provider: Mode Judge Consulting Physician: Mode Judge Reason for Consult: Medical care Time Spent in preparation of Discharge (in minutes): 30 Hospital Course - Lab Results Lab Results: Most Recent Lab Values WBC 8.0 K/uL (4.8-10.8) 12/07/18 07:01 RBC 4.15 Mil/uL (4.40-5.90) L 12/07/18 07:01 Hgb 13.2 g/dL (12.0-18.0) 12/07/18 07:01 Hct 39.2 % (35.0-51.0) 12/07/18 07:01 MCV 94.5 fL (80.0-94.0) H 12/07/18 07:01 MCH 31.8 pg (27.0-31.0) H 12/07/18 07:01 MCHC 33.6 g/dL (33.0-37.0) 12/07/18 07:01 RDW 15.6 % (11.5-14.5) H 12/07/18 07:01 Plt Count 114 K/uL (130-400) L 12/07/18 07:01 MPV 8.4 fL (7.2-11.7) 12/07/18 07:01 Neut % (Auto) 84.6 % (50.0-75.0) H 12/06/18 19:00 Lymph % (Auto) 7.0 % (20.0-40.0) L 12/06/18 19:00 [place] % (Auto) 7.6 % (0.0-10.0) 12/06/18 19:00 Eos % (Auto) 0.3 % (0.0-4.0) 12/06/18 19:00 Baso % (Auto) 0.5 % (0.0-2.0) 12/06/18 19:00 Neut # (Auto) 7.0 K/uL (1.8-7.0) 12/06/18 19:00 Lymph # (Auto) 0.6 K/uL (1.0-4.3) L 12/06/18 19:00 [place] # (Auto) 0.6 K/uL (0.0-0.8) 12/06/18 19:00 Eos # (Auto) 0.0 K/uL (0.0-0.7) 12/06/18 19:00 Baso # (Auto) 0.0 K/uL (0.0-0.2) 12/06/18 19:00 Neutrophils % (Manual) 78 % (50-75) H 12/06/18 19:00 Band Neutrophils % 8 % (0-2) H 12/06/18 19:00 Lymphocytes % (Manual) 7 % (20-40) L 12/06/18 19:00 Monocytes % (Manual) 7 % (0-10) 12/06/18 19:00 Platelet Estimate Slightly decreased (NORMAL) L 12/06/18 19:00 Anisocytosis (manual) Slight 12/06/18 19:00 PT 15.1 SECONDS (9.7-12.2) H 12/08/18 06:57 INR 1.4 12/08/18 06:57 APTT 33 SECONDS (21-34) 12/08/18 06:57 Sodium 139 mmol/L (132-148) 12/07/18 07:01 Potassium 3.9 mmol/L (3.6-5.2) 12/07/18 07:01 Chloride 103 mmol/L (98-107) 12/07/18 07:01 Carbon Dioxide 28 mmol/L (22-30) 12/07/18 07:01 Anion Gap 12 (10-20) 12/07/18 07:01 BUN 24 mg/dL (9-20) H 12/07/18 07:01 Creatinine 1.7 mg/dL (0.8-1.5) H 12/07/18 07:01 Est GFR ( Amer) 48 12/07/18 07:01 Est GFR (Non-Af Amer) 39 12/07/18 07:01 POC Glucose (mg/dL) 253 mg/dL (65-110) H 12/08/18 11:08 Random Glucose 175 mg/dL (75-110) H D 12/07/18 07:01 Calcium 9.2 mg/dl (8.6-10.4) 12/07/18 07:01 Phosphorus 2.9 mg/dL (2.5-4.5) 12/07/18 07:01 Magnesium 1.9 mg/dL (1.6-2.3) 12/07/18 07:01 Total Bilirubin 1.4 mg/dL (0.2-1.3) H 12/07/18 07:01 AST 55 U/L (17-59) 12/07/18 07:01 ALT 56 U/L (21-72) 12/07/18 07:01 Alkaline Phosphatase 61 U/L (38-126) 12/07/18 07:01 Total Protein 7.1 g/dL (6.3-8.3) 12/07/18 07:01 Albumin 4.3 g/dL (3.5-5.0) 12/07/18 07:01 Globulin 2.8 gm/dL (2.2-3.9) 12/07/18 07:01 Albumin/Globulin Ratio 1.6 (1.0-2.1) 12/07/18 07:01 Alpha Fetoprotein 2.4 ng/mL (0.0-7.5) 12/06/18 19:10 Carcinoembryonic Ag 3.1 ng/mL (0-3.0) H 12/06/18 19:00 CA 19-9 Antigen 11.5 U/mL (0-37) 12/06/18 19:00 - Hospital Course Hospital Course: Pt is a 73M with PMHx HTN, DM, CAD, AICD, Pacemaker who presented to for elective cholecystectomy on 12/06/18. Pt had lap omar with IOC and a CBD stone was visualized. Post surgery ERCP was recommended and pt was found to have papillary stenosis and a stent was inserted. Pt tolerated the procedure well. He's POD#2 and tolerating a regular diet. Pt is ambulating and will be DC home today. Discharge Exam - Head Exam Head Exam: ATRAUMATIC, NORMOCEPHALIC - Eye Exam Eye Exam: Normal appearance - ENT Exam ENT Exam: Mucous Membranes Moist - Respiratory Exam Respiratory Exam: NORMAL BREATHING PATTERN - Cardiovascular Exam Cardiovascular Exam: RRR - Extremities Exam Extremities exam: full ROM - Neurological Exam Neurological exam: Alert, Oriented x3 - Skin Skin Exam: Dry, Warm Discharge Plan - Discharge Medications Prescriptions: oxyCODONE/Acetaminophen [Percocet 5/325 mg Tab] 1 tab PO Q4H PRN #20 tab PRN Reason: Pain, Severe (8-10) - Follow Up Plan Condition: GOOD Disposition: HOME/ ROUTINE Instructions: High Blood Pressure (DC), Controlling Your Blood Pressure Through Lifestyle, Gallstones (DC), Cholecystitis (DC), Cholecystitis (GEN) Additional Instructions: Ok to discharge. Follow up with Dr. Boyd in 1 week. No heavy lifting >15lbs. Ok to shower tomorrow. Follow up with GI for stent removal. Referrals: Emily Moses [Staff Provider] -
--- NOTE | 2018-12-10 08:10 | RAD ---
Date of service: 12/07/2018 PROCEDURE: Intraoperative Fluoroscopy. HISTORY: CBD STONE FINDINGS: Fluoroscopic assistance was provided for ERCP. Please refer to the operative report from DANIELLE Thomas. 304.5 sec of fluoro time was utilized a cumulative radiation dose of 2.39 mGym2.
--- NOTE | 2018-12-16 06:23 | OP ---
PROCEDURE DATE: 12/06/2018 PREOPERATIVE DIAGNOSIS: Symptomatic cholelithiasis. POSTOPERATIVE DIAGNOSIS: Symptomatic cholelithiasis. PROCEDURE: Laparoscopic cholecystectomy with intraoperative cholangiogram. SURGEON: Dewayne Boyd MD. COLLAR SETTER: Pedrito Quesada DO, PGY-I TYPE OF ANESTHESIA: General. INDICATIONS: This is a 73-year-old male with a history of acute cholecystitis, status post cholecystostomy tube placement by Interventional Radiology secondary to the patient's poor clinical status at the time of presentation. Cholecystectomy indicated and recommended at this time with patient medically optimized. The risks, benefits and surgery rationale were explained. Informed consent was obtained with the nurse at the bedside as witness, DESCRIPTION OF PROCEDURE: The patient was taken to the operating room and placed on the table in supine position with the left arm tucked in. Time outs were performed to verify correct patient, procedure, site and additional critical information prior to beginning the procedure. Preoperatively 2 g of Ancef were administered. General anesthesia was initiated and the patient intubated. The patient was then prepped and draped in sterile fashion. Prior to incision, cholangiogram was performed under dynamic fluoroscopy through existing cholecystostomy tube. Contrast was injected through the tube, however, contrast did not flow into the duodenum, rather showing a distal common bile duct obstruction. Gastroenterology team was subsequently consulted for additional necessary imaging and procedures after discussion postoperatively. A periumbilical incision was then made and the Veress needle inserted. Operative position was confirmed. The abdomen was insufflated with CO2 to a pressure of 16 ___ pneumoperitoneum. The patient tolerated insufflation well. A 12 mm trocar was then inserted at the umbilicus. The laparoscope was inserted under direct vision and the abdomen back to attention. No injuries occurred with initial port placement. Additional ports were place as follows. A 5 mm subxiphoid port and a 5 mm port along the right subcostal margin along with local anesthetic. Inspection of the gallbladder showed fibrotic changes with viable tissue and ____. The table was placed in reverse Trendelenburg with the right side up. The gallbladder fundus was grasped, however, due to significant ____, the gallbladder ruptured with bile ____ the abdominal cavity. Biliary fluid was suctioned. The gallbladder fundus was then grasped and retracted cephalad over the liver. Adhesions between the gallbladder and omentum and duodenum were carefully taken down. Dissection was done to expose Calot's triangle . Peritoneum overlying the infundibulum was incised and tripped inferiorly. The cystic duct and cystic artery were identified and dissected circumstantially until was obtained. The cystic duct and artery were then doubly clipped and divided. Due to patient's history of AICD and pacemaker, electrocautery was used cautiously and minimally. The gallbladder was dissected off the liver bed and hemostasis was achieved primarily with the use of multiple clips . There was ___ in the cystic duct stump. The gallbladder was placed in an EndoCatch retrieval bag, removed through the umbilical incision. Specimen was sent to pathology. Thorough irrigation was performed and also bile was suctioned. Ports were removed under direct vision with no bleeding noted at trocar sites and the abdomen was deflated. 0 Vicryl was used to close the fascia at the umbilical port site. The skin of all incisions reapproximated with subcuticular 4-0 Monocryl and Dermabond. Operative field was cleaned and dried. Island dressings were applied. No intraoperative complication encountered. All instrument and sponge counts were correct. The patient was extubated in the OR and transferred to PACU in stable condition. Pedrito Quesada D.O. Dewayne Boyd MD
== END 2018-12-08 14:15 | disposition home or self-care (01) | DRG 418 ==
LOC: C.SDS 10:04 → C.9S 13:54 → C.6T 16:03
PROVIDERS: ADMIT Surgery; ATTEND Surgery
PROC: BF141ZZ Fluoroscopy of Gallbladder, Bile Ducts and Pancreatic Ducts using Low Osmolar Contrast (ICD-10-PCS; 2018-12-06)
PROC: 0FT44ZZ Resection of Gallbladder, Percutaneous Endoscopic Approach (ICD-10-PCS; principal; 2018-12-06 11:30)
PROC: 0F798DZ Dilation of Common Bile Duct with Intraluminal Device, Via Natural or Artificial Opening Endoscopic (ICD-10-PCS; 2018-12-07)
DX: K80.67 Calculus of gallbladder and bile duct with acute and chronic cholecystitis with obstruction (principal); K57.10 Diverticulosis of small intestine without perforation or abscess without bleeding; I42.0 Dilated cardiomyopathy; E11.9 Type 2 diabetes mellitus without complications; I10 Essential (primary) hypertension; I25.10 Atherosclerotic heart disease of native coronary artery without angina pectoris; I25.5 Ischemic cardiomyopathy; I48.2 Chronic atrial fibrillation; E78.00 Pure hypercholesterolemia, unspecified; Z82.49 Family history of ischemic heart disease and other diseases of the circulatory system; Z87.891 Personal history of nicotine dependence; Z95.810 Presence of automatic (implantable) cardiac defibrillator; I25.2 Old myocardial infarction; Z95.5 Presence of coronary angioplasty implant and graft

== ENCOUNTER 2019-01-08 07:08 | Day surgery (SDC) | payer MEDICARE ==
[2019-01-07 12:05] VITALS: BMI 28.0
--- NOTE | 2019-01-08 10:03 | CP.SDSHP ---
Same Day Surgery H & P - History Proposed Procedure: EGD Pre-Op Diagnosis: SEE NOTES - Previous Medical/Surgical History Cardiac: Hypertension Endocrine/Metabolic: Diabetes, Other Neuro: Other Pain: 2.Mild Pain Previous Surgical History: S/P CHOLI. , PACEMAKER - Allergies Allergies: Allergies No Known Allergies Allergy (Verified 01/08/19 07:49) - Physical Exam General Appearance: N Vital Signs: Vital Signs 01/08/19 07:25 Temperature 97.5 F L Pulse Rate 66 Respiratory 19 Rate Blood Pressure 176/89 H O2 Sat by Pulse 98 Oximetry Mental Status: Alert & Oriented x3 Neuro: WNL Heart: Other Lungs: WNL GI: Other - {Optional Preform as Required} Breast: WNL Abdomen: Other Rectal: Other Integument: WNL : WNL Ortho: WNL ENT: WNL - Impression Pt. Evaluated Today:Candidate for Anesthesia & Procedure: Yes - Date & Time Time: 10:04 Short Stay Discharge - Short Stay Discharge Admitting Diagnosis/Reason for Visit: FOREIGN BODY ALIMENTARY TRACT Disposition: HOME/ ROUTINE
[2019-01-08] MEDS ORDERED: Etomidate 20 mg/10ml Inj IV ONE (10:07)
[2019-01-08] MEDS ORDERED: Labetalol 25mg/5ml Syringe ONE (10:27)
[2019-01-08] MEDS ORDERED: Belladonna-Phenobarbital PO ONE (10:30)
[2019-01-08 10:42] VITALS: TEMP 98
[2019-01-08 12:50] VITALS: BP 161/90; PULSE 65; RESP 16; O2SAT 99
== END 2019-01-08 11:45 | disposition home or self-care (01) ==
LOC: C.ENDO 07:08
PROVIDERS: ATTEND Specialist
DX: Z46.89 Encounter for fitting and adjustment of other specified devices (principal); B37.81 Candidal esophagitis; K44.9 Diaphragmatic hernia without obstruction or gangrene
CPT/HCPCS: 43247; 82948; 88300; J2001; J3010

== ENCOUNTER 2019-01-20 11:43 | Emergency (ER) | payer MEDICARE ==
[2019-01-20 11:44] VITALS: BMI 28.0
[2019-01-20 11:59] VITALS: TEMP 98.2
[2019-01-20 12:47] LABS: BASO # 0.1 K/uL (0.0-0.2); BASO % 1.9 % (0.0-2.0); EOS # 0.4 K/uL (0.0-0.7); EOS % 6.1 % (0.0-4.0); HEMOGLOBIN 13.7 g/dL (12.0-18.0); LYMPH # 1.3 K/uL (1.0-4.3); LYMPH % 23.2 % (20.0-40.0); MEAN CELL VOLUME 93.9 fL (80.0-94.0); MEAN PLATELET VOLUME 8.3 fL (7.2-11.7); MONO # 0.7 K/uL (0.0-0.8); MONO % 12.1 % (0.0-10.0); NEUT # 3.3 K/uL (1.8-7.0); NEUT % 56.7 % (50.0-75.0); NRBC % 0.1 % (0.0-2.0); RBC 4.41 Mil/uL (4.40-5.90); WHITE BLOOD COUNT 5.8 K/uL (4.8-10.8)
[2019-01-20 12:57] LABS: INR 1.4; PROTHROMBIN TIME 14.8 SECONDS (9.7-12.2)
[2019-01-20 12:58] LABS: ALB/GLOB RATIO 1.4 (1.0-2.1); ALBUMIN 4.8 g/dL (3.5-5.0); ALT/SGPT 25 U/L (21-72); AST/SGOT 32 U/L (17-59); BLOOD UREA NITROGEN 22 mg/dL (9-20); CALCIUM 8.9 mg/dl (8.6-10.4); GFR NON-AFRICAN AMERICAN 54
[2019-01-20] MEDS ORDERED: Sodium Chloride 0.9% 1,000 ML ONE (13:10)
[2019-01-20] MEDS ORDERED: Sodium Chloride 0.9% 1,000 ML IV ONE (13:14)
--- NOTE | 2019-01-20 13:36 | C.PDOC ---
History Of Present Illness 73 years old male with PMHx of stroke and cholecystectomy presents to ED for complaints of headache, dizziness, vomiting, constipation, and high blood pressure since this morning. Patient states he had a surgery done by Dr. Frost recently and since then has had constipation. Patient reports taking his blood pressure medication this morning. Denies abdominal pain, GI bleeding, or any other physical complaints. Time Seen by Provider: 01/20/19 12:35 Chief Complaint (Nursing): GI Problem History Per: Patient History/Exam Limitations: no limitations Onset/Duration Of Symptoms: Hrs Current Symptoms Are (Timing): Still Present Recent travel outside of the [place]: No Past Medical History Reviewed: Historical Data, Nursing Documentation, Vital Signs Vital Signs: Last Vital Signs Temp 98.2 F 01/20/19 11:58 Pulse 65 01/20/19 12:38 Resp 18 01/20/19 11:58 BP 202/109 H 01/20/19 12:38 Pulse Ox 94 L 01/20/19 12:38 - Medical History PMH: Anxiety, Arthritis, Atrial Fibrillation, Cardia Arrhythmia, Gall Bladder Disease, HTN, Hypercholesterolemia Denies: Chronic Kidney Disease Surgical History: Cholecystectomy, Coronary Stent (X7), Pacemaker - [facility] Procedures DILATION OF COMMON BILE DUCT WITH INTRALUMINAL DEVICE, ENDO (12/06/18) DRAINAGE OF GALLBLADDER WITH DRAINAGE DEVICE, PERC APPROACH (10/14/18) FLUOROSCOPY OF GALLBL, BILE, PANCR DUCT USING L OSM CONTRAST (12/06/18) RESECTION OF GALLBLADDER, PERCUTANEOUS ENDOSCOPIC APPROACH (12/06/18) Family History: States: No Known Family Hx - Social History Hx Alcohol Use: No Hx Substance Use: No - Immunization History Hx Tetanus Toxoid Vaccination: No Hx Influenza Vaccination: No Hx Pneumococcal Vaccination: No Review Of Systems Except As Marked, All Systems Reviewed And Found Negative. Constitutional: Negative for: Fever, Chills Gastrointestinal: Positive for: Nausea, Vomiting, Constipation. Negative for: Abdominal Pain, Diarrhea Skin: Negative for: Rash Neurological: Positive for: Headache, Dizziness. Negative for: Weakness, Numbness Physical Exam - Physical Exam Appears: Non-toxic, No Acute Distress Skin: Normal Color, Warm, Dry, No Rash Head: Atraumatic, Normacephalic Eye(s): bilateral: Normal Inspection, PERRL, EOMI Oral Mucosa: Moist Throat: Normal, No Erythema, No Exudate, No Drooling, No Mass Neck: Normal ROM, Supple Chest: Symmetrical, No Tenderness Cardiovascular: Rhythm Regular, No Murmur Respiratory: Normal Breath Sounds, No Rales, No Rhonchi, No Wheezing Gastrointestinal/Abdominal: Normal Exam, Bowel Sounds (Active ), Soft, No Tenderness, No Guarding, No Rebound Back: Normal Inspection, No CVA Tenderness Extremity: Normal ROM Extremity: Bilateral: Atraumatic, Normal Color And Temperature, Normal ROM Pulses: Left Dorsalis Pedis: Normal, Right Dorsalis Pedis: Normal Neurological/Psych: Oriented x3, Normal Speech, Normal Motor, Normal Sensation, Normal Reflexes, Other (No focal deficits ) Gait: Steady ED Course And Treatment - Laboratory Results Result Diagrams: 01/20/19 12:38 01/20/19 12:38 Lab Results: PT 14.8 SECONDS (9.7-12.2) H 01/20/19 12:38 INR 1.4 01/20/19 12:38 APTT 39 SECONDS (21-34) H 01/20/19 12:38 Total Bilirubin 0.8 mg/dL (0.2-1.3) 01/20/19 12:38 AST 32 U/L (17-59) 01/20/19 12:38 ALT 25 U/L (21-72) 01/20/19 12:38 Alkaline Phosphatase 93 U/L (38-126) 01/20/19 12:38 Total Protein 8.3 g/dL (6.3-8.3) 01/20/19 12:38 Albumin 4.8 g/dL (3.5-5.0) 01/20/19 12:38 Globulin 3.5 gm/dL (2.2-3.9) 01/20/19 12:38 Albumin/Globulin Ratio 1.4 (1.0-2.1) 01/20/19 12:38 O2 Sat by Pulse Oximetry: 94 (RA) Pulse Ox Interpretation: Abnormal Medical Decision Making Medical Decision Making: Plan: * Trandate * Zofran * IV Fluids * EKG * Blood work EKG: * Similar from prior 10/14/18 Fleet enema was ordered. Medications for High BP was ordered/ On re-exam, the patient reports improvement of symptoms, Lungs are CTA, heart is RRR, abdomen is soft, non-tender and the patient is tolerating PO well. Pt is ambulatory in the ED with steady gait. Follow up with the medical doctor within 1-2 days. Return if worsened. Disposition - Disposition Referrals: Mode Judge MD [Staff Provider] - Disposition: HOME/ ROUTINE Disposition Time: 15:53 Condition: GOOD Additional Instructions: Follow up with the medical doctor within 1-2 days. Return if worsened. Prescriptions: Ondansetron ODT [Zofran ODT] 1 odt PO BID PRN #10 odt PRN Reason: Nausea/Vomiting Polyethylene Glycol 3350 [Miralax] 17 gm PO DAILY PRN #100 ml PRN Reason: Constipation Instructions: Constipation, Adult (DC) Forms: [facility] (Setswana) - Clinical Impression Clinical Impression: Constipation - PA / [employer] / Resident Statement MD/DO has reviewed & agrees with the documentation as recorded. - Scribe Statement The provider has reviewed the documentation as recorded by the Alexanderibmiko Morgan All medical record entries made by the Scribe were at my direction and personally dictated by me. I have reviewed the chart and agree that the record accurately reflects my personal performance of the history, physical exam, medical decision making, and the department course for this patient. I have also personally directed, reviewed, and agree with the discharge instructions and disposition.
[2019-01-20] MEDS ORDERED: Labetalol 25mg/5ml Syringe IV STA (13:40)
[2019-01-20] MEDS ORDERED: Labetalol 5mg/ml (4ml) ONE (13:53)
[2019-01-20 13:56] LABS: CK-MB 2.18 ng/mL (0.0-3.38)
[2019-01-20 16:03] VITALS: BP 160/83; PULSE 65; RESP 16
[2019-01-20 16:04] VITALS: O2SAT 94
--- NOTE | 2019-01-21 22:29 | CARD ---
APPROVED REPORT Date of service: 01/20/2019 EKG Measurement Heart [id number] <Conclusion> Atrial Flutter with V demand pacing. Instinsic QRS demonstrates lateral CA age undetermined, Abnormal ECG
== END 2019-01-20 16:22 | disposition home or self-care (01) ==
LOC: C.ER 11:43
DX: K59.00 Constipation, unspecified (principal); I48.91 Unspecified atrial fibrillation; I10 Essential (primary) hypertension; E78.00 Pure hypercholesterolemia, unspecified; Z86.73 Personal history of transient ischemic attack (TIA), and cerebral infarction without residual deficits
CPT/HCPCS: 80053; 84484; 85025; 85610; 85730; 93005; 96374; 99285; J2405; J7030